=== PATIENT | female | born 1990 | race Caucasian/White ===

== ENCOUNTER 2019-04-02 14:45 | Emergency (ER) | payer MEDICAID, SELFPAY ==
[2019-04-02 14:59] VITALS: BP 153/99; PULSE 71; RESP 16; TEMP 36.4; O2SAT 99
--- NOTE | 2019-04-02 15:44 | W.ED.GENAD ---
Discharge Plan Disposition Patient Disposition: HOME Discharge Details Chief Complaint: DentalOral Clinical Impression: Dental infection Primary Care Provider: None,None ED Provider: Zenon Zamora Home Meds and New Rx's Prescriptions: Continued buprenorphine-naloxone [Suboxone] 8-2 mg Film 14 film sublingual DAILY RF: 0 Discharge Instructions Instructions: Penicillin V (By mouth), Dental Abscess (ED) Additional Instructions: Please take antibiotic as prescribed. Be sure to take the full course. Please take ibuprofen over the counter. Take 600mg by mouth every 6 hours as needed for pain. Please take acetaminophen (tylenol) - 650mg every 6 hours by mouth as needed for pain. Please contact your dentist to arrange follow-up. Return to the ER for any worsening or new concerning symptoms. Discharge Data Discharge Date/Time-TO BE ENTERED AT DEPARTURE: 04/02/19 16:00 Medical Decision Making 28-year-old female smoker here with right upper incisor dental pain that started about 2 weeks ago and has persisted. Patient notes chronic fracture of the tooth. She is no associated fevers. She does have some associated facial swelling. No appreciable abscess on visualization or palpation of her gumline. Plan to treat with lidocaine periapical dental block and penicillin. Patient to follow-up with dental. HPI General Mode of arrival: ambulatory. Date/Time Provider Initiated Documentation: 04/02/19 15:31. Limitations to Documentation: no limitations. Information obtained by: patient. HPI Narrative: 28-year-old female smoker here with right upper incisor dental pain that started about 2 weeks ago and has persisted. Patient notes chronic fracture of the tooth. She is no associated fevers. Pain is described as an ache. Pain is now severe. Worse on palpation of the tooth. Related Data Home Medications Medication Instructions Recorded Confirmed buprenorphine-naloxone [Suboxone] 14 film SUBLINGUAL DAILY 04/02/19 04/09/19 Allergies Allergy/AdvReac Type Severity Reaction Status Date / Time No Known Allergies Allergy Unverified 04/09/19 09:38 General Stated Complaint: DentalOral NEHAL: 4 Review of Systems Constitutional Constitutional: Denies fever(s) ENT Ears, Nose, Mouth, and Throat: Reports as per HPI [facility] Medical History Anxiety Depression Genital herpes Primary outbreak while . Had PCD. Molar D+C 12/02/15 for complete molar . Pt advised serial HcGs for a year and reliable contraception. Presence of subdermal contraceptive device inserted 8/17/16. Tobacco use Surgical History (Updated 03/07/18 @ 14:35 by [employer] [place]) section 01/2015 PCD @ term for primary HSV outbreak. FBarbara Jackman. ep Dilation and curettage (06/30/15) 06/30/15 Incomplete SAB 9w EGA. aoc 12/02/15 D+C complete molar . aoc Family History Mother Mental disorder severe bipolar dz Brother Mental disorder 2014 suicide 22yo. GSW Social History Smoking/Tobacco Use Status: Current every day Tobacco Type: cigarettes Alcohol Intake: never Drug use: Current Sobriety Substance use type: marijuana Do you feel safe in your relationship?: Yes Exam Const General: cooperative and no acute distress HENMT Head: normocephalic and atraumatic Face and sinus: no crepitus, no fluctuance, no sinus tenderness and other (Mild right facial swelling over mastoid with no induration) Mouth: moist mucous membranes Teeth and gingiva: poor dentition and other (Right upper incisor tender along the gumline with no fluctuance) Throat: posterior oropharynx normal Eyes EOM: EOM intact bilaterally Neck Neck: trachea midline and supple Neuro General: alert, awake and tone normal Course Vital Signs Vital signs: Vital Signs Temperature 36.4 C L 04/02/19 14:59 Pulse 71 04/02/19 14:59 Respiratory Rate 16 04/02/19 14:59 Blood Pressure 153/99 H 04/02/19 14:59 Pulse Oximetry 99 04/02/19 14:59 Temperature 36.4 C L 04/02/19 14:59 Temperature Source Skin 04/02/19 14:59 Pulse 71 04/02/19 14:59 Respiratory Rate 16 04/02/19 14:59 Respiratory Effort Non-Labored 04/02/19 14:59 Blood Pressure 153/99 H 04/02/19 14:59 Blood Pressure Position Sitting 04/02/19 14:59 Pulse Oximetry 99 04/02/19 14:59 Oxygen Delivery Method Room Air 04/02/19 14:59 Oxygen Flow Rate 0 04/02/19 14:59 Pain Level 9 04/02/19 15:05
[2019-04-02] MEDS: Penicillin V POTASSIUM 500 MG TAB, 4 TABS/BTL PO (15:48)
[2019-04-02] MEDS: Penicillin V POTASSIUM 500 MG TAB PO (15:48)
[2019-04-02] MEDS: Lidocaine 1% Multi-Dose 50 ML VIAL IJ (15:51)
== END 2019-04-02 16:00 | disposition home or self-care (01) ==
LOC: ER 16:16
PROVIDERS: Emergency Provider Student in an Organized Health Care Education/Training Program
DX: R68.84 Jaw pain (principal); K04.7 Periapical abscess without sinus; R22.0 Localized swelling, mass and lump, head
CPT/HCPCS: 99283

== ENCOUNTER 2019-04-09 09:33 | Emergency (ER) | payer MEDICAID, SELFPAY ==
[2019-04-09 09:35] VITALS: BP 117/74; PULSE 97; RESP 18; TEMP 36.8; O2SAT 96
--- NOTE | 2019-04-09 09:42 | ED.GENADUL_ITS ---
Discharge Plan Disposition Patient Disposition: HOME Condition: Stable Discharge Details Chief Complaint: DentalOral Clinical Impression: Pain, dental Primary Care Provider: None,None ED Provider: Miguel Angel Meza Home Meds and New Rx's Prescriptions: New penicillin V potassium 500 mg tablet 500 mg PO QID 7 Days Qty: 28 RF: 0 Continued buprenorphine-naloxone [Suboxone] 8-2 mg Film 14 film sublingual DAILY RF: 0 Discharge Instructions Instructions: Toothache (ED) Additional Instructions: It is important to follow up with a dentist if you have difficulty breathing or inability to swallow liquids return to the emergency department Medical Decision Making 28 yo female with dental caries who finished penicillin this morning and was improving but still has right posterior molar pain. Has no findings to suggest ludwigs and has no abscess on exam. HAs nuermous dental caries. Stressed importance of f/u with dentist to have teeth pulled and will d/c home. Return precautions given Differential Diagnosis Differential Diagnosis: caries, pulpitis HPI General Mode of arrival: ambulatory . Date/Time Provider Initiated Documentation: 04/09/19 09:36 . Limitations to Documentation: no limitations . Information obtained by: patient . History of Present Illness 28 year old F presents to the emergency department with the chief complaint of right upper tooth pain, described as moderate, Quality is described as aching, Patient reports no radiation. No relieving factors improve symptom(s), No exacerbating factors reported . Patient did receive the following treatments prior to arrival, none Related Data Home Medications Medication Instructions Recorded Confirmed buprenorphine-naloxone [Suboxone] 14 film SUBLINGUAL DAILY 04/02/19 04/09/19 penicillin V potassium 500 mg PO QID 7 Days #28 tab 04/09/19 Previous Rx's Medication Instructions Recorded penicillin V potassium 500 mg PO QID 7 Days #28 tab 04/09/19 Allergies Allergy/AdvReac Type Severity Reaction Status Date / Time No Known Allergies Allergy Unverified 04/09/19 09:38 General Stated Complaint: DentalOral NEHAL: 5 Review of Systems All systems reviewed & are unremarkable except as noted in HPI and below Constitutional Constitutional: Denies chills, Denies fever(s) and Denies weakness Cardiovascular Cardiovascular: Denies chest pain and Denies dyspnea Respiratory Respiratory: Denies cough and Denies dyspnea Gastrointestinal Gastrointestinal: Denies abdominal pain, Denies nausea and Denies vomiting Musculoskeletal Musculoskeletal: Denies joint swelling Neurologic Neurologic: Denies weakness PFSH Medical History Anxiety Depression Genital herpes Primary outbreak while . Had PCD. Molar D+C 12/02/15 for complete molar . Pt advised serial HcGs for a year and reliable contraception. Presence of subdermal contraceptive device inserted 01/06/16. Tobacco use Surgical History (Updated 03/07/18 @ 14:35 by [place]) section 01/2015 PCD @ term for primary HSV outbreak. Rupa Jackman. ep Dilation and curettage (06/30/15) 06/30/15 Incomplete SAB 9w EGA. aoc 12/02/15 D+C complete molar . aoc Family History Mother Mental disorder severe bipolar dz Brother Mental disorder 2014 suicide 22yo. GSW Social History Smoking/Tobacco Use Status: Current every day Tobacco Type: cigarettes Alcohol Intake: never Drug use: Current Sobriety Substance use type: marijuana Do you feel safe in your relationship?: Yes Exam Const General: no acute distress Orientation: alert HENMT Head: normal to inspection Ears: external ears normal General nose exam: external nose normal Mouth: moist mucous membranes Eyes General: appearance normal, both eyes and all related structures Neck Neck: normal visual inspection Resp Effort & Inspection: normal respiratory effort and able to speak in complete sen tences Cardio Rate: regular rate Skin General skin exam: no rashes or lesions noted Neuro General: alert and oriented x3 Extrem General: normal to inspection Psych Mental Status: mental status grossly normal Course Vital Signs Vital signs: Vital Signs Temperature 36.8 C 04/09/19 09:35 Pulse 97 H 04/09/19 09:35 Respiratory Rate 18 04/09/19 09:35 Blood Pressure 117/74 04/09/19 09:35 Pulse Oximetry 96 04/09/19 09:35 Temperature 36.8 C 04/09/19 09:35 Temperature Source Skin 04/09/19 09:35 Pulse 97 H 04/09/19 09:35 Respiratory Rate 18 04/09/19 09:35 Respiratory Effort Non-Labored 04/09/19 09:38 Blood Pressure 117/74 04/09/19 09:35 Blood Pressure Position Sitting 04/09/19 09:35 Pulse Oximetry 96 04/09/19 09:35 Oxygen Delivery Method Room Air 04/09/19 09:35 Oxygen Flow Rate 0 04/09/19 09:35 Pain Level 7 04/09/19 09:35
== END 2019-04-09 09:49 | disposition home or self-care (01) ==
LOC: ER 09:48
PROVIDERS: Emergency Provider Emergency Medicine
DX: K08.89 Other specified disorders of teeth and supporting structures (principal)
CPT/HCPCS: 99283

== ENCOUNTER 2019-06-04 20:49 | Emergency (ER) | payer MEDICAID, SELFPAY ==
[2019-06-04 20:53] VITALS: BP 117/60; PULSE 71; RESP 16; TEMP 36.6; O2SAT 96
--- NOTE | 2019-06-04 21:14 | W.ED.GENAD ---
Discharge Plan Disposition Patient Disposition: HOME Condition: Good Discharge Details Chief Complaint: CORRECTION OFFICER Clinical Impression: Abnormal uterine bleeding Primary Care Provider: None,None ED Provider: Morena Gee Home Meds and New Rx's Prescriptions: Continued methadone 10 mg Tablet 70 mg PO DAILY RF: 0 buprenorphine-naloxone [Suboxone] 8-2 mg Film 14 film sublingual DAILY RF: 0 Discharge Instructions Instructions: Dysfunctional Uterine Bleeding (ED) Additional Instructions: At this time, you do not have any active bleeding, strings from IUD visualized. Please call [facility] tomorrow to schedule follow up. Return if you develop fevers/chills, pain, heavy bleeding or other new/worsening symptoms. Referrals: Becca Mohan MD [ [facility] STAFF PHYSICIAN] - Medical Decision Making Patient is a 28 year old female, accompanied by significant other with c/c of vaginal bleeding. She states that she has an IUD in place, states that it is due to come out. States that over recent months she has been having intermittent spotting. Denies pain with this. Comes in today after noting bleeding after being sexually active with significant other. Denies vaginal pain, dysparunea, abdominal pain, fevers/chills, lesions, pruritis. No evidence of large blood loss. She reports that slowed down at this point. Try to quantify the amount of blood, unclear. She reports that she cut a part of the sock, inserted this into her vagina. Remove this upon arrival here and has not noted further bleeding. On exam, patient is resting comfortably. Vital signs are within normal limits. Abdominal exam is benign. Scant amount of blood is noted in the vaginal canal. The IUD strings are visible in the cervix. No active bleeding. No evidence of trauma, cuts or breaks in the skin. I discussed with the patient that at this point, I see no active source of bleeding. We did discuss that bleeding can occur even with IUD placed. She [facility] and I advised that she contact them tomorrow for prompt follow-up appointment. She was given strict return precautions. All of her questions and concerns were addressed she is in agreement with this plan. HPI General Mode of arrival: ambulatory. Date/Time Provider Initiated Documentation: 06/04/19 20:54. Limitations to Documentation: no limitations. Information obtained by: patient, family (signficant other) and RN notes reviewed. History of Present Illness 28 year old F presents to the emergency department with the chief complaint of vaginal bleeding, described as moderate, with intensity rated at 1 (denies any pain associated with this). Patient started experiencing this minute(s) and it has been constant (improving). No relieving factors improve symptom(s), Other factors that worsen symptoms (started after sexual activity) . Patient notes no other symptoms.. 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 Review of Systems Constitutional Constitutional: Reports as per HPI, Denies chills, Denies fatigue, Denies fever(s) and Denies headache(s) ENT Ears, Nose, Mouth, and Throat: Denies headache(s) Cardiovascular Cardiovascular: Reports as per HPI, Denies chest pain and Denies dyspnea Respiratory Respiratory: Reports as per HPI, Denies cough and Denies dyspnea Gastrointestinal Gastrointestinal: Reports as per HPI Genitourinary Genitourinary: Reports as per HPI, Reports abnormal vaginal bleeding, Denies hematuria, Denies genital pruritis, Denies genital lesions, Denies menorrhagia, Denies dyspareunia, Denies dysmenorrhea, Denies dysuria, Denies pelvic pain, Denies sexual dysfunction, Denies vaginal dryness, Denies vaginal odor and Denies vaginal pruritus Musculoskeletal Musculoskeletal: Reports as per HPI and Denies back pain Integumentary/Breasts Skin/Breast: Reports as per HPI and Denies rash Neurologic Neurologic: Reports as per HPI and Denies headache(s) Endocrine Endocrine: Denies fatigue [facility] Medical History Anxiety Depression Genital herpes Primary outbreak while . Had PCD. Molar D+C 12/02/15 for complete molar . Pt advised serial HcGs for a year and reliable contraception. Presence of subdermal contraceptive device inserted 01/06/16. Tobacco use Surgical History section 01/2015 PCD @ term for primary HSV outbreak. Rupa Jackman. ep Dilation and curettage (06/30/15) 06/30/15 Incomplete SAB 9w EGA. [facility] 12/02/15 D+C complete molar . [facility] Family History Mother Mental disorder severe bipolar dz Brother Mental disorder 2014 suicide 22yo. GSW Social History Smoking/Tobacco Use Status: Current every day Tobacco Type: cigarettes Alcohol Intake: never Drug use: Current Sobriety Substance use type: heroin Details: inject Do you feel safe at home: Yes Do you feel safe in your relationship?: Yes Exam Const General: cooperative, healthy appearing, comfortable, no acute distress and well developed Nutritional Appearance: average body habitus and well nourished Orientation: alert and awake HENMT Head: normal to inspection Mouth: moist mucous membranes Resp Effort & Inspection: normal respiratory effort, able to speak in complete sentences and no respiratory distress Cardio Rate: regular rate Rhythm: regular rhythm GI Inspection: normal to inspection Palpation: soft, no hepatosplenomegaly, not firm, no guarding, not rigid and nontender Auscultation: normal bowel sounds External Female Exam: external appearance normal, normal appearance of the urethra, no erythema, no tenderness externally, no external swelling and no lesions Speculum Exam - Vagina: normal appearance of the vagina (scant amount of dark blood in vagina), not erythematous, no foreign bodies, no lacerations, no lesions, vaginal bleeding, No tissue present in vagina, no masses, no swelling and nontender Speculum Exam - Cervix: normal appearance of the cervix (strings for IUD present), closed cervix and nontender Bimanual Exam- Vagina & Uterus: normal bimanual exam, normal vaginal palpation, uterine size normal, uterine consistency normal, uterine mobility normal and No cervical tenderness Bimanual Exam- Adnexa, other: normal adnexae and no adnexal masses OB/External & Speculum: no foreign bodies, no tissue noted in vagina and vaginal bleeding Back/Spine/Pelvis Back: no CVA tenderness Skin General skin exam: no rashes or lesions noted Trauma: no lacerations or abrasions Neuro General: alert and awake Cognition: normal cognition Speech: speech normal Gait: normal gait Psych Appearance: grossly normal and well kempt Mental Status: mental status grossly normal Speech and Movement: speech and movement normal Course Vital Signs Vital signs: Vital Signs Temperature 36.6 C 06/04/19 20:53 Pulse 71 06/04/19 20:53 Respiratory Rate 16 06/04/19 20:53 Blood Pressure 117/60 06/04/19 20:53 Pulse Oximetry 96 06/04/19 20:53 Temperature 36.6 C 06/04/19 20:53 Temperature Source Skin 06/04/19 20:53 Pulse 71 06/04/19 20:53 Respiratory Rate 16 06/04/19 20:53 Respiratory Effort 06/04/19 20:57 Blood Pressure 117/60 06/04/19 20:53 Blood Pressure Position Sitting 06/04/19 20:53 Pulse Oximetry 96 06/04/19 20:53 Oxygen Delivery Method Room Air 06/04/19 20:53 Oxygen Flow Rate 0 06/04/19 20:53 Pain Level 0 06/04/19 20:53 Lab/Test Results Lab/Test Results: POC- Test(urine) Negative
--- NOTE | 2019-06-04 21:35 | NUR.NOTE ---
PA in to perform pelvic exam. pt brayan well. no active bleeding noted.
== END 2019-06-04 21:40 | disposition home or self-care (01) ==
PROVIDERS: Emergency Provider Physician Assistant
DX: N93.8 Other specified abnormal uterine and vaginal bleeding (principal)
CPT/HCPCS: 81025; 99284; 99283

== ENCOUNTER 2019-06-20 11:17 | Outpatient (CLI) | payer MEDICAID, SELFPAY ==
[2019-06-21 09:59] LABS: Hepatitis B Surface Ag Negative (Negative)
[2019-06-21 10:10] LABS: HIV-1/2 Ag & Ab Screen Negative (Negative)
[2019-06-25 09:21] LABS: Hepatitis C Ab w Rflx HCV PCR Reactive (Negative)
[2019-06-25 09:23] LABS: HCV RNA Detection Quantitative 2628 IU/mL (Undetected)
== END 2019-06-20 11:37 ==
PROVIDERS: Visit Provider Obstetrics & Gynecology
DX: Z11.3 Encounter for screening for infections with a predominantly sexual mode of transmission (principal); Z11.4 Encounter for screening for human immunodeficiency virus [HIV]; Z11.59 Encounter for screening for other viral diseases
CPT/HCPCS: 36415; 86803; 87340; 87389; 87522

== ENCOUNTER 2019-06-20 14:25 | Outpatient (REF) | payer MEDICAID, SELFPAY ==
--- NOTE | 2019-06-20 11:15 | PAPFT_PTH ---
PATIENT: Natalie Jacobo LOC: [facility] U#:[id number] AGE/SX: 28/F ROOM: RE06/20/[address]: Yimi Ying MD : [id number] BED: DIS: 06/20/2019 SPEC #: [id number] RECD: 06/20/19 18:04 STATUS: MIGUEL RERenata #: [id number] OSCAR: 06/20/19 11:[address]: Yimi Ying DEPT: [facility] Cytology RECD BY: Maggie Montes ENTERED: 06/20/19 18:07 SP TYPE: PAPFT OTHR DR: None Tissues: 1 - CX/ENDOCX FOR PAP SMEARS Procedures: PAP THIN PREP/[facility] Screening Comments: [id number] (CHLAMYDIA/GC)
[2019-06-21 13:18] LABS: Chlamydia Result Negative (Negative); GC Result Negative (Negative)
== END 2019-06-20 14:45 ==
LOC: LBN 14:25
PROVIDERS: Visit Provider Obstetrics & Gynecology
DX: Z12.4 Encounter for screening for malignant neoplasm of cervix (principal); Z11.3 Encounter for screening for infections with a predominantly sexual mode of transmission
CPT/HCPCS: 87491; 87591; 88142

== ENCOUNTER 2019-10-11 09:32 | Emergency (ER) | payer MEDICAID, SELFPAY ==
[2019-10-11 09:43] VITALS: BP 111/65; PULSE 78; RESP 16; TEMP 37; O2SAT 99
--- NOTE | 2019-10-11 09:55 | W.ED.GENAD ---
Discharge Plan Disposition Patient Disposition: HOME Condition: Stable Discharge Details Chief Complaint: GenMedical Clinical Impression: UTI (urinary tract infection), Bacterial vaginosis, Rash, skin Primary Care Provider: None,None ED Provider: Rin Stewart Home Meds and New Rx's Prescriptions: New cephalexin [Keflex] 500 mg capsule 500 mg PO QID Qty: 28 RF: 0 metronidazole [Flagyl] 500 mg tablet 500 mg PO BID Qty: 14 RF: 0 mupirocin 2 % ointment 1 applic TP TID Qty: 15 RF: 0 No Action norgestimate-ethinyl estradiol [Sprintec (28)] 0.25-35 mg-mcg tablet 1 tab PO DAILY Qty: 84 RF: 4 methadone 10 mg Tablet 90 mg PO DAILY RF: 0 Discharge Instructions Instructions: Bacterial Vaginosis (ED), Urinary Tract Infection in Women (ED), Acute Rash (ED) Additional Instructions: Drink plenty of fluids. Use antibiotics as prescribed. Use Flagyl as prescribed. Do not mix with alcohol. Use antibiotic cream topically 3 times a day on rash. Please follow-up with women's wellness as discussed. Please follow-up the assistant basketball coach Return for any worsening, concerns or alarming symptoms sooner if needed Referrals: [facility] [Provider Group] Medical Decision Making Is a 28-year-old patient presenting to the emergency room for multiple complaints please see HPI for details. Patient specifically concerned with rash on bilateral upper extremities, breast bilaterally and left shoulder secondary to scratching. Patient now has signs of secondary superinfection due to skin daryn. Some pustular findings are present. Patient has no obvious abscess. Patient does have clear findings of recent IV drug use in the right AC without focal abscess or swelling present. Patient reports these lesions are chronic although now appearing more red. Patient denies obvious itching. I do not suspect scabies given distribution of patient's rash only located areas in which she scratches. She has clear skin on her back and lower extremities. Suspect patient has mild superinfection we will plan to treat with Keflex. Topical Bactroban. Patient is also complaining of vaginal discharge. Patient reports vaginal discharge intermittently. Patient does also complain of mild dysuria. Will check urinalysis as well as pelvic exam. Patient is also concerned regarding history of a molar and she was required to have serial hCGs testing which he has not followed up with. Patient did report a single episode of vaginal spotting yesterday and is concerned if she is . Will check serum hCG. Patient's urinalysis consistent with acute urinary tract infection. Patient has positive findings of nitrates, moderate leukocyte esterase, white blood cells present and many bacteria present on microscopic. Patient's pelvic exam reveals white vaginal discharge consistent with bacterial vaginosis will send vaginal path and await results. GC chlamydia swabs pending. Patient did speak with assistant basketball coach regarding her use. Will follow up with methadone clinic and her counselor as well. hCG serum negative. Patient's vaginal path results positive for Gardnerella. Patient's preference is oral medications. Will provide Flagyl twice daily x7 days. Will recommend follow-up with women's wellness. The patient was stable and requested discharge. Prior to discharge, my usual and customary return precautions were reviewed with the patient - this included follow-up instructions and reasons to return to the Emergency Department if conditions worsens, does not improve as expected, or other new concerns arise. HPI General Date/Time Provider Initiated Documentation: 10/11/19 09:42. HPI Narrative: This is a 28-year-old patient presenting to emergency room today for multiple complaints. Patient is first concerned about rash to bilateral forearms. Patient reports she is an opiate abuser. She is chronically on methadone. She does admit to recent IV drug use. She does report chronic picking of her skin for several years. Patient is concerned as she has scattered wounds to bilateral forearms, face and chest resulting from picking. Patient is concerned that these small wounds could be infected. Patient denies any itching. Patient denies any difficulty sleeping due to her these lesions. Patient does report mild redness around the area which is somewhat different from her baseline. Patient denies any fevers, chills, sweats. Patient denies any headaches or dizziness. Denies any chest pain, difficulty breathing or shortness of breath. Patient does report a mild dry cough which is her baseline. She attributes to smoking. Patient denies any abdominal pain. No abdominal distention. Patient does report some vaginal spotting of blood yesterday since resolved. Patient does report a mild white vaginal discharge. Denies any obvious itching vaginally or in the perineal area. Patient does report occasional dysuria but reports she struggles with staying hydrated and reports when hydrated she does not experience this burning when urinating. Patient is sexually active. Patient is a current methadone patient. Patient admits to IV drug use this week. Patient does report a history of molar pregnancies. Patient reports she was supposed to be followed with serial hCGs and she has not been compliant with this follow-up. Patient is requesting a serum hCG. History of D&C due to molar in the past. Related Data Home Medications Medication Instructions Recorded Confirmed methadone 90 mg PO DAILY 06/04/19 10/11/19 norgestimate 0.25 mg-ethinyl 1 tab PO DAILY #84 tab 06/20/19 06/20/19 estradiol 35 mcg tablet cephalexin [Keflex] 500 mg PO QID #28 cap 10/11/19 metronidazole [Flagyl] 500 mg PO BID #14 tab 10/11/19 mupirocin 1 applic TP TID #15 gm 10/11/19 Previous Rx's Medication Instructions Recorded norgestimate 0.25 mg-ethinyl 1 tab PO DAILY #84 tab 06/20/19 estradiol 35 mcg tablet cephalexin [Keflex] 500 mg PO QID #28 cap 10/11/19 metronidazole [Flagyl] 500 mg PO BID #14 tab 10/11/19 mupirocin 1 applic TP TID #15 gm 10/11/19 Allergies Allergy/AdvReac Type Severity Reaction Status Date / Time No Known Allergies Allergy Unverified 10/11/19 09:48 General Stated Complaint: GenMedical NEHAL: 3 Review of Systems All systems reviewed & are unremarkable except as noted in HPI and below PFSH Medical History Anxiety Depression Genital herpes Primary outbreak while . Had PCD. Molar D+C 12/02/15 for complete molar . Pt advised serial HcGs for a year and reliable contraception. Presence of subdermal contraceptive device inserted 01/06/16. Tobacco use Family History Mother Mental disorder severe bipolar dz Brother Mental disorder 2014 suicide 22yo. W Social History Smoking/Tobacco Use Status: Current every day Tobacco Type: cigarettes Quit status: not considering quitting Alcohol Intake: never Drug use: Current Sobriety Substance use type: heroin Counseling provided: treatment program Details: inject Do you feel safe at home: Yes Do you feel safe in your relationship?: Yes Exam Narrative Exam Narrative: CONST: Anxious appearing patient, in no acute distress. Mildly dehydrated. Alert and oriented. HENMT: Scattered thickened lesions on face. EYES: General normal appearance. Alignment normal. Eyelids normal. Conjunctiva normal. Sclera normal. PERRL. NECK: Normal visual inspection. FROM. No lymphadenopathy. Trachea midline. No Midline tenderness. Few scattered lesions on neck CHEST: Normal insepection of the chest. RESP: Normal respiratory effort. Speaking full sentences. No cough. No wheezing. No retractions. Clear to auscaltation. Breath sound equal and present bilaterally. CARDIO: No JVD. Normal PMI. Regular Rate. Regular Rhythm. Normal peripheral pulses. GI: Normal inspection of abdomen. No distension. Soft. Nontender. Bowel sounds present in all 4 quadrants. No rebound. No gaurding. : Patient with no obvious external lesions. Patient has white vaginal discharge present, mildly malodorous. Cervix is closed, no cervical motion tenderness. No obvious adnexal tenderness or mass. MUSCULOSKELETAL: Normal Gait. FROM of all extremities. Distal neurovascularly intact. Sensation intact distally. SKIN: Normal. Dry. Patient with bilateral forearm rash consistent with picking and possible superimposed secondary bacterial infection there are a few areas of pustular lesions noted at the wrist. Patient has a recent IV drug use today in the right AC. Patient has picking moore along the anterior chest and left shoulder. NEURO: Alert and awake. Speech clear. PSYCH: Normal affect. Cooperative. Course Vital Signs Vital signs: Vital Signs Temperature 37.0 C 10/11/19 09:43 Pulse 78 10/11/19 09:43 Respiratory Rate 16 10/11/19 09:43 Blood Pressure 111/65 10/11/19 09:43 Pulse Oximetry 99 10/11/19 09:43 Temperature 37.0 C 10/11/19 09:43 Temperature Source Skin 10/11/19 09:43 Pulse 78 10/11/19 09:43 Respiratory Rate 16 10/11/19 09:43 Respiratory Effort 10/11/19 09:49 Blood Pressure 111/65 10/11/19 09:43 Pulse Oximetry 99 10/11/19 09:43 Oxygen Delivery Method Room Air 10/11/19 09:43 Oxygen Flow Rate 0 10/11/19 09:43
[2019-10-11 10:37] LABS: Abs Immature Grans 0.03 k/cumm (0.0-0.09); Absolute Basophil Count 0.01 k/cumm (0.0-0.2); Absolute Eosinophil Count 0.04 k/cumm (0.0-0.7); Absolute Lymphocyte Count 1.19 k/cumm (1.2-3.4); Basophils % 0.1; Eosinophils % 0.3; HCT 40.8 % (36.0-46.0); HGB 13.7 g/dL (12.0-15.5); Immature Grans % 0.2 %; Lymphocytes % 8.7; Mean Corp. HGB Concentration 33.6 g/dL (32.0-36.0); Mean Corpuscular Hemoglobin 31.1 pg (27.0-33.0); Mean Corpuscular Volume 92.5 fL (80-95); Mean Platelet Volume 9.9 fL (8.0-11.0); Monocytes % 4.2; Neutrophils % 86.5; Platelet Count 256 x1000/uL (130-400); RBC 4.41 m/cumm (4.00-5.20); RBC Distribution Width 13.6 % (11.7-14.6); White Blood Cell Count 13.73 k/cumm (4.4-10.8)
[2019-10-11 10:44] LABS: Absolute Monocyte Count 0.58 k/cumm (0.11-0.7); Absolute Neutrophil Count 11.88 k/cumm (1.2-6.7)
[2019-10-11 10:51] LABS: Bilirubin Negative (Negative); Blood Moderate (Negative); Clarity Cloudy (Clear); Glucose Negative (Negative); Ketones Negative (Negative); Leukocyte Esterase Moderate (Negative); Nitrite Positive (Negative); Urobilinogen 0.2 EU/dL (Up TO 0.2)
[2019-10-11 11:01] LABS: HCG Qual (Serum) Negative
[2019-10-11 11:09] LABS: Bacteria Many HPF (Negative); Crystals Rare Calcium Oxalate HPF (Negative); Epithelial Cells Many HPF (Negative); Mucus Negative (Negative)
[2019-10-11 11:10] LABS: C & S Indicated? C&S Done As Ordered
[2019-10-14 15:46] LABS: Chlamydia Result Negative (Negative); GC Result Negative (Negative)
== END 2019-10-11 12:25 | disposition home or self-care (01) ==
PROVIDERS: Emergency Provider Physician Assistant
DX: N76.0 Acute vaginitis (principal); B96.89 Other specified bacterial agents as the cause of diseases classified elsewhere; N39.0 Urinary tract infection, site not specified; R21 Rash and other nonspecific skin eruption; F11.20 Opioid dependence, uncomplicated; Z59.0 Homelessness
CPT/HCPCS: 36415; 87077; 87491; 87591; 99284; 81003; 81015; 84703; 85025; 87086; 87186; 87480; 87510; 87660

== ENCOUNTER 2020-07-28 03:48 | Outpatient (CLI) | payer MEDICAID, SELFPAY ==
--- NOTE | 2020-07-28 14:45 | RT.EKG_ITS ---
APPROVED REPORT Exam: Resting ECG Patient Location: O HR:62 bpm ECG Measurements Heart Rate 62 AXIS [place] 154 P 38 QRSd 89 QRS -6 QT 443 T 37 QTc 450 Conclusion Sinus rhythm...normal P axis, V-rate 60- 99
== END 2020-07-28 03:49 | disposition home or self-care (01) ==
LOC: RT 03:48
PROVIDERS: Visit Provider Family Medicine
DX: Z79.899 Other long term (current) drug therapy (principal); Z13.6 Encounter for screening for cardiovascular disorders
CPT/HCPCS: 93005; 93010

== ENCOUNTER 2020-11-30 03:16 | Outpatient (CLI) | payer MEDICAID, SELFPAY ==
[2020-11-30 10:20] LABS: Abs Immature Grans 0.01 10^3/uL (0.0-0.06); Absolute Basophil Count 0.02 10^3/uL (0.0-0.2); Absolute Eosinophil Count 0.25 10^3/uL (0.0-0.7); Absolute Lymphocyte Count 1.86 10^3/uL (1.2-3.4); Absolute Monocyte Count 0.59 10^3/uL (0.1-0.8); Basophils % 0.3; Eosinophils % 4.4; HCT 37.9 % (36.0-46.0); HGB 12.1 g/dL (11.2-15.7); Immature Grans % 0.2; Lymphocytes % 32.5; MCH 30.3 pg (27.0-33.0); MCHC 31.9 % (32.0-36.0); MPV 9.2 fL (8.0-11.0); Monocytes % 10.3; Neutrophils % 52.3; Nucleated RBC 0 %; Platelet Count 181 10^3/uL (130-400); RBC 3.99 10^6/uL (3.93-5.22); RDW-SD 49.1 fL; WBC 5.73 10^3/uL (4.4-10.8)
[2020-11-30 12:41] LABS: ALT 61 U/L (14-59); AST 33 U/L (15-37); Albumin 3.1 g/dL (3.4-5.0); Alkaline Phosphatase 85 U/L (46-116); Anion Gap 7.4 mmol/L (3-11); BUN 9 mg/dL (7-18); Bilirubin, Total 0.6 mg/dL (0.2-1.0); CO2 30.6 mmol/L (21.0-32.0); CREATININE 1.1 mg/dL (0.55-1.02); Calcium 8.7 mg/dL (8.5-10.1); Calculated LDL 86 mg/dL (<100); Chloride 106 mmol/L (98-107); Cholesterol 151 mg/dL (<200); Estimated GFR 59.58 (mL/min/1.73m2); Glucose 110 mg/dL (74-106); HDL Cholesterol 47 mg/dL (40-60); Potassium 5.1 mmol/L (3.5-5.1); Sodium 144 mmol/L (136-145); TSH 0.76 uIU/mL (0.36-3.74); Total Protein 6.3 g/dL (6.4-8.2); Triglyceride 93 mg/dL (<150)
[2020-11-30 12:43] LABS: HCG Quant, Pregnancy < 1 mIU/mL (1-3)
[2020-11-30 13:03] LABS: FREE T4 1.16 ng/dL (0.76-1.46)
[2020-11-30 19:42] LABS: FSH 4.5 mIU/mL (See Note)
[2020-11-30 19:48] LABS: LH 5.7 mIU/mL (See Note)
[2020-12-01 10:58] LABS: Syphilis Serology (RPR) Negative (Negative)
[2020-12-01 11:32] LABS: HIV-1/2 Ag & Ab Screen Negative (Negative)
[2020-12-01 11:47] LABS: Hepatitis C Ab w Rflx HCV PCR Reactive (Negative)
[2020-12-02 14:54] LABS: HCV RNA Qualitative Undetected (Undetected)
== END 2020-11-30 03:17 | disposition home or self-care (01) ==
LOC: LBO 03:16
PROVIDERS: PCP Nurse Practitioner Family; Visit Provider Nurse Practitioner Family
DX: F19.90 Other psychoactive substance use, unspecified, uncomplicated (principal); Z13.220 Encounter for screening for lipoid disorders; N91.2 Amenorrhea, unspecified; Z11.59 Encounter for screening for other viral diseases; Z11.4 Encounter for screening for human immunodeficiency virus [HIV]
CPT/HCPCS: 36415; 80053; 80061; 86803; 87389; 87522; 83001; 83002; 84439; 84443; 84702; 85025; 86592

== ENCOUNTER 2021-02-15 08:59 | Emergency (ER) | payer MEDICAID, SELFPAY ==
[2021-02-15 09:08] VITALS: BP 139/85; PULSE 106; RESP 18; TEMP 36.6; O2SAT 100
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
--- NOTE | 2021-02-15 10:46 | NUR.NOTE ---
Pt rang [facility]ally and requested how long it would be that she needed to wait for results at 1043-advised her that it would be 45-60 min. I left the room and she then got dressed and left the building.Nursing Note:
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
== END 2021-02-15 10:46 | disposition left against medical advice (07) ==
PROVIDERS: Emergency Provider Physician Assistant; PCP Nurse Practitioner Family
DX: S52.511A Displaced fracture of right radial styloid process, initial encounter for closed fracture (principal); S09.8XXA Other specified injuries of head, initial encounter; S01.81XA Laceration without foreign body of other part of head, initial encounter; V57.5XXA Driver of pick-up truck or van injured in collision with fixed or stationary object in traffic accident, initial encounter; Z53.29 Procedure and treatment not carried out because of patient's decision for other reasons
CPT/HCPCS: 81025; 99284; 70450; 72125; 73110

== ENCOUNTER 2021-02-16 10:30 | Emergency (ER) | payer MEDICAID, SELFPAY ==
[2021-02-16 10:32] VITALS: BP 130/85; PULSE 99; RESP 16; TEMP 36.6; O2SAT 100
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
== END 2021-02-16 10:54 | disposition home or self-care (01) ==
PROVIDERS: Emergency Provider Emergency Medicine; PCP Nurse Practitioner Family
DX: S52.511A Displaced fracture of right radial styloid process, initial encounter for closed fracture (principal); V87 Traffic accident of specified type but victim's mode of transport unknown
CPT/HCPCS: 25600

== ENCOUNTER 2021-10-14 19:49 | Emergency (ER) | payer MEDICAID, SELFPAY ==
[2021-10-14 19:54] VITALS: BP 132/87; PULSE 102; RESP 18; TEMP 36.9; O2SAT 98
[2021-10-14] MEDS: Ibuprofen 600 MG TAB PO (20:55)
[2021-10-14] MEDS: Acetaminophen 325 MG TAB 650 MG PO (20:55)
[2021-10-14] MEDS: Benzocaine 20% Gel 30 GM JAR MM (20:56)
--- NOTE | 2021-10-14 20:59 | W.ED.GENAD ---
Discharge Plan Disposition Patient Disposition: HOME Condition: Stable Discharge Details Clinical Impression: Dental abscess Primary Care Provider: Sandy Milner ED Provider: Zenon Zamora Home Meds and New Rx's Prescriptions: New penicillin V potassium 500 mg tablet 500 mg PO QID Qty: 38 0RF Continued methadone 10 mg/5 mL Solution 60 mg PO DAILY Discharge Instructions Instructions: Penicillin V (By mouth), Dental Abscess (ED) Additional Instructions: Please take antibiotic as prescribed. Performed salt water rinses twice a day. Please follow-up with a dentist. Call tomorrow. Referrals: Sandy Milner, NASIR [Primary Care Provider] - Medical Decision Making 30-year-old female smoker, here with dental abscess tooth #4. Patient was anesthetized with mucosal benzocaine. She was given Tylenol and ibuprofen. I offered lidocaine injection and patient refused. Lateral fluctuant abscess ruptured on its own and had active purulent discharge -patient was not agreeable to intervention lateral gumline. Patient was agreeable to incision of medial swelling. She provided verbal consent. 11 blade was used to make small incision into area of swelling medially. Usual customary discharge instructions reviewed with the patient. She was given initial dose of penicillin 500 mg here in the ED and also provided a second dose for the morning. I sent prescription to her pharmacy for continued course. Patient understands the importance of timely follow-up with dentist. I did provide dental list to the patient to arrange follow-up. She was encouraged to return here immediately for any worsening or new concerning symptoms. HPI General Mode of arrival: ambulatory. Date/Time Provider Initiated Documentation: 10/14/21 20:34. Limitations to Documentation: no limitations. Information obtained by: patient. HPI Narrative: 30-year-old female smoker here with dental pain. Patient notes pain started yesterday and has worsened. Pain now severe. No modifiers. She has associated swelling. She notes feels like there is an abscess with feeling a pop. No associated fever. This tooth has not been infected in the past. Patient has not taken any ibuprofen or Tylenol this evening. Related Data Home Medications Medication Instructions Recorded Confirmed methadone 10 mg/5 mL oral solution 60 mg PO DAILY 10/14/21 10/14/21 penicillin V potassium 500 mg 500 mg PO QID #38 tabs 10/14/21 tablet Previous Rx's Medication Instructions Recorded penicillin V potassium 500 mg 500 mg PO QID #38 tabs 10/14/21 tablet Allergies Allergy/AdvReac Type Severity Reaction Status Date / Time house dust Allergy Unknown Unverified 10/14/21 19:58 dust mite Allergy Unknown Uncoded 10/14/21 19:58 General Stated Complaint: DentalOral NEHAL: 4 Review of Systems Constitutional Constitutional: Reports as per HPI ENT Ears, Nose, Mouth, and Throat: Reports as per HPI PFSH All Active Problems Dental abscess (Acute) No-show for appointment (Acute) Closed fracture of right distal radius (Acute) Fracture of wrist (Acute) Head injury (Acute) Substance use disorder (Chronic) IV heroin use. On methadone through [facility] Major depressive disorder (Chronic) Generalized anxiety disorder (Acute) Cigarette smoker (Acute) Surgical History S/P section (02/10/15) S/P dilation and curettage (12/02/15) For molar Family History Mother Alcohol abuse Bipolar disorder Asthma Father , at 37 from car accident No problems noted. Brother , at 22 from suicide Alcohol abuse Daughter No problems noted. Maternal Grandfather Alcohol abuse Cancer Unknown type Maternal Grandmother Heart disease Myocardial infarction Paternal Grandfather No problems noted. Paternal Grandmother No problems noted. Social History Smoking/Tobacco Use Status: Current every day Tobacco Type: cigarettes Quit status: not considering quitting Second Hand Exposure: Yes Smoking risk assessment performed?: Yes Alcohol Intake: never Drug use: Daily Substance use type: marijuana Details: inject Household members: none Pets and animals: Yes Pets and animals: dog(s) Sexually active: No Do you think of yourself as: straight/heterosexual Current gender identity: female What is your relationship status?: never How often do you talk on the phone with friends or family?: three or more times per week How often do you get together with friends or relatives?: never How often do you attend scientology or evangelical services?: 1-3 times per year Panel score (0-1 are the most socially isolated patients): 1 What type of physical activity do you participate in: walking Duration: > 90 minutes/day Frequency: daily Lulú/Gnosticism: No preference Special lulú needs: No Seatbelt use: sometimes Helmet use: No 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 Do you feel safe at home: Yes Do you feel safe in your relationship?: Yes History History 3 Para 1 Hx # Term Pregnancies Multiple births Hx # Pregnancies Ectopic pregnancies AB induced Hx Number of Living Children 1 AB spontaneous 2 Exam Const General: uncomfortable Nutritional Appearance: well nourished Orientation: alert and awake HENMT Face and sinus: no fluctuance and other (Mild swelling right maxilla) Teeth and gingiva: poor dentition and other (Tooth #5 with fluctuant abscess adjacent to tooth laterally & med swelling) Throat: posterior oropharynx normal Course Vital Signs Vital signs: Vital Signs Temperature 36.9 C 10/14/21 19:54 Pulse 102 H 10/14/21 19:54 Respiratory Rate 18 10/14/21 19:54 Blood Pressure 132/87 10/14/21 19:54 Pulse Oximetry 98 10/14/21 19:54 Temperature 36.9 C 10/14/21 19:54 Pulse 102 H 10/14/21 19:54 Respiratory Rate 18 10/14/21 19:54 Respiratory Effort 10/14/21 20:00 Blood Pressure 132/87 10/14/21 19:54 Blood Pressure Position Sitting 10/14/21 19:54 Pulse Oximetry 98 10/14/21 19:54 Oxygen Delivery Method Room Air 10/14/21 19:54 Oxygen Flow Rate 0 10/14/21 19:54 Pain Level 8 10/14/21 19:54 Procedures Abscess I/D Site: Other (tooth) Side (if applicable): Right Local Anesthetic: Other Anesthetic (Benzocaine topical) Technique: Incised with #11 Blade Packing used?: None Complications: Other (none)
[2021-10-14] MEDS: Lidocaine 2% Multi-Dose 50 ML VIAL (21:00)
[2021-10-14] MEDS: Penicillin V POTASSIUM 500 MG TAB PO ×2 (21:23)
== END 2021-10-14 21:30 | disposition home or self-care (01) ==
PROVIDERS: Emergency Provider Student in an Organized Health Care Education/Training Program; PCP Nurse Practitioner Family
DX: K04.7 Periapical abscess without sinus (principal)
CPT/HCPCS: 10060; J3490

== ENCOUNTER 2022-01-27 12:33 | Emergency (ER) | payer MEDICAID, SELFPAY ==
[2022-01-27 12:42] VITALS: BP 147/96; PULSE 122; RESP 20; TEMP 36.7; O2SAT 99
--- NOTE | 2022-01-27 13:14 | W.ED.GENAD ---
Discharge Plan Disposition Patient Disposition: HOME Condition: Stable Discharge Details Clinical Impression: Dental infection Primary Care Provider: Sandy Milner ED Provider: Jett Hebert Home Meds and New Rx's Prescriptions: New clindamycin HCl 300 mg capsule 300 mg PO TID Qty: 30 0RF Continued methadone 10 mg/5 mL Solution 60 mg PO DAILY Discharge Instructions Instructions: Dental Abscess (ED) Additional Instructions: Clindamycin as directed. [id number] Tylenol and/or Motrin as directed for discomfort. Please watch for new or worsening symptoms and return to the ER for any concerns. Lastly, using the dental list provided please contact the local dentist to be seen at a next available appointment. Medical Decision Making 31-year-old female with poor dentition at baseline reports 7-day history of increased mouth pain, foul taste in her mouth, believes an abscess popped. Patient states that she was recently placed on penicillin but it made her itchy so she never took it. She denies fever, difficulty speaking or swallowing. Patient requesting a prescription for antibiotics. I will also provide her with local dental list. Patient appears well, nontoxic, no evidence of trismus. She manages secretions without difficulty. Patient does state that she missed her methadone dose for the last 3 days, was given a half dose this morning, and continues to feel somewhat ill secondary to withdrawal. She is requesting that the prescription be faxed as she does not want to wait for any of her discharge instructions. Patient was verbally discharged Standard discharge and return precautions were provided. Patient understands, is agreeable to this plan, and has no additional questions or concerns upon discharge. This documentation was generated using [employer] system, please disregard any oddities of phrase or misspellings. Medical Records Medical records reviewed: Yes I reviewed the patient's medical records. HPI General Mode of arrival: ambulatory. Date/Time Provider Initiated Documentation: 01/27/22 12:49. Limitations to Documentation: no limitations. Information obtained by: patient. History of Present Illness 31 year old F presents to the emergency department with the chief complaint of dental infection, described as moderate, with intensity rated at 4. Quality is described as aching, and is localized to the mouth. Patient reports no radiation. Patient started experiencing this day(s) (6) and it has been constant. No relieving factors improve symptom(s), No exacerbating factors reported . Patient notes no other symptoms.. Patient did receive the following treatments prior to arrival, none Related Data Home Medications Medication Instructions Recorded Confirmed methadone 10 mg/5 mL oral solution 60 mg PO DAILY 10/14/21 01/27/22 clindamycin HCl 300 mg capsule 300 mg PO TID #30 caps 01/27/22 Previous Rx's Medication Instructions Recorded clindamycin HCl 300 mg capsule 300 mg PO TID #30 caps 01/27/22 Allergies Allergy/AdvReac Type Severity Reaction Status Date / Time house dust Allergy Unknown Unverified 01/27/22 12:46 dust mite Allergy Unknown Uncoded 01/27/22 12:46 General Stated Complaint: DentalOral NEHAL: 4 Review of Systems Constitutional Constitutional: Denies fever(s) ENT Ears, Nose, Mouth, and Throat: Denies sore throat Gastrointestinal Gastrointestinal: Denies nausea and Denies vomiting PFSH All Active Problems Dental infection (Acute) No-show for appointment (Acute) Closed fracture of right distal radius (Acute) Fracture of wrist (Acute) Head injury (Acute) Substance use disorder (Chronic) 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 Brother , at 22 from suicide Alcohol abuse Daughter No problems noted. Maternal Grandfather Alcohol abuse Cancer Unknown type Maternal Grandmother Heart disease Myocardial infarction Paternal Grandfather No problems noted. Paternal Grandmother No problems noted. Social History Smoking/Tobacco Use Status: Current every day Tobacco Type: cigarettes Quit status: not considering quitting Second Hand Exposure: Yes Smoking risk assessment performed?: Yes Alcohol Intake: never Drug use: Daily Substance use type: marijuana Details: inject Household members: none Pets and animals: Yes Pets and animals: dog(s) Sexually active: No Do you think of yourself as: straight/heterosexual Current gender identity: female What is your relationship status?: never How often do you talk on the phone with friends or family?: three or more times per week How often do you get together with friends or relatives?: never How often do you attend yazidi or scientology services?: 1-3 times per year Panel score (0-1 are the most socially isolated patients): 1 What type of physical activity do you participate in: walking Duration: > 90 minutes/day Frequency: daily Lulú/Mosque: No preference Special lulú needs: No Seatbelt use: sometimes Helmet use: No Drive intox or ride w/intox local company refrigerated truck driver: No Do you feel safe at home: Yes Do you feel safe in your relationship?: Yes History History 3 Para 1 Hx # Term Pregnancies Multiple births Hx # Pregnancies Ectopic pregnancies AB induced Hx Number of Living Children 1 AB spontaneous 2 Exam Const General: cooperative, healthy appearing, comfortable and no acute distress Orientation: alert and awake HENMT Head: normal to inspection, normocephalic and atraumatic Face and sinus: normal facial exam Mouth: lip normal, tongue normal and moist mucous membranes Teeth and gingiva: poor dentition (Throughout) Throat: posterior oropharynx normal Eyes General: appearance normal, both eyes and all related structures Conjunctivae: conjunctivae normal Neck Neck: normal visual inspection, full ROM, no lymphadenopathy, no meningeal signs, trachea midline, supple and nontender Resp Effort & Inspection: normal respiratory effort and able to speak in complete sentences Auscultation: clear to auscultation bilaterally Cardio Rate: bradycardic (102) Rhythm: regular rhythm Skin General skin exam: no rashes or lesions noted Neuro General: patient alert, patient awake, moves all extremities and no focal motor deficits Sensory Exam: no sensory deficits noted Psych Appearance: grossly normal Mental Status: mental status grossly normal Course Vital Signs Vital signs: Vital Signs Temperature 36.7 C 01/27/22 12:42 Pulse 122 H 01/27/22 12:42 Respiratory Rate 20 01/27/22 12:42 Blood Pressure 147/96 H 01/27/22 12:42 Pulse Oximetry 99 01/27/22 12:42 Temperature 36.7 C 01/27/22 12:42 Temperature Source Temporal Artery Scan 01/27/22 12:42 Pulse 122 H 01/27/22 12:42 Respiratory Rate 20 01/27/22 12:42 Blood Pressure 147/96 H 01/27/22 12:42 Blood Pressure Position Sitting 01/27/22 12:42 Pulse Oximetry 99 01/27/22 12:42 Oxygen Delivery Method Room Air 01/27/22 12:42 Oxygen Flow Rate 0 01/27/22 12:42 Pain Level 6 01/27/22 12:42
[2022-01-27 13:16] VITALS: BP 158/92; PULSE 103; RESP 18; TEMP 36.6; O2SAT 100
== END 2022-01-27 13:19 | disposition home or self-care (01) ==
PROVIDERS: Emergency Provider Physician Assistant; PCP Nurse Practitioner Family
DX: K04.7 Periapical abscess without sinus (principal); R00.1 Bradycardia, unspecified; F17.210 Nicotine dependence, cigarettes, uncomplicated
CPT/HCPCS: 99283; 99284

== ENCOUNTER 2023-02-07 03:45 | Outpatient (CLI) | payer MEDICAID, SELFPAY ==
[2023-02-07 13:10] LABS: ALT 24 U/L (14-59); AST 22 U/L (15-37); Albumin 3.5 g/dL (3.4-5.0); Alkaline Phosphatase 59 U/L (46-116); Anion Gap 7.8 mmol/L (3-11); BUN 19 mg/dL (7-18); Bilirubin, Total 0.5 mg/dL (0.2-1.0); CO2 27.2 mmol/L (21.0-32.0); CREATININE 1.3 mg/dL (0.55-1.02); Calcium 9.5 mg/dL (8.5-10.1); Chloride 102 mmol/L (98-107); Estimated GFR 56.73 (mL/min/1.73m2); Glucose 94 mg/dL (74-106); Potassium 4.2 mmol/L (3.5-5.1); Sodium 137 mmol/L (136-145); TSH (W/Ref FT4) 0.56 uIU/mL (0.36-3.74); Total Protein 7.5 g/dL (6.4-8.2)
[2023-02-09 10:32] LABS: Syphilis Serology (RPR) Negative (Negative)
[2023-02-09 11:00] LABS: HIV-1/2 Ag & Ab Screen Negative (Negative)
[2023-02-09 13:25] LABS: Hepatitis C Ab w Rflx HCV PCR Reactive (Negative)
[2023-02-10 11:06] LABS: HCV RNA Qualitative Undetected (Undetected)
== END 2023-02-07 03:46 | disposition home or self-care (01) ==
LOC: LOS 03:45
PROVIDERS: PCP Nurse Practitioner Family; Visit Provider Nurse Practitioner Family
DX: F11.21 Opioid dependence, in remission (principal); Z11.4 Encounter for screening for human immunodeficiency virus [HIV]; Z11.59 Encounter for screening for other viral diseases; Z11.3 Encounter for screening for infections with a predominantly sexual mode of transmission; F32.89 Other specified depressive episodes
CPT/HCPCS: 36415; 80053; 86803; 87389; 87522; 84443; 86592

== ENCOUNTER 2023-08-13 16:38 | Emergency (ER) | payer MEDICAID, SELFPAY ==
[2023-08-13 16:43] VITALS: BP 177/138; PULSE 76; RESP 18; TEMP 37.4; O2SAT 96
--- NOTE | 2023-08-13 17:00 | DI.CT_ITS ---
Exam(s) CT HEAD WO EXAM: CT HEAD WO CLINICAL HISTORY: ams. TECHNIQUE: Imaging Protocol: Axial computed tomography images with coronal and sagittal reformatted images were created and reviewed COMPARISON: CT CT HEAD CERVICAL SPINE WO from 02/15/2021 FINDINGS: Ventricles and Extra axial spaces: Normal in size and morphology for the patient's age. Hemorrhage: None. Cerebral parenchyma: No evidence of acute infarct or mass. Midline shift: None. Brainstem/Cerebellum: Cerebellar tonsils extend slightly below the foramen magnum. No evidence of cr owding or tonsillar pegging. Stable appearance. Calvarium: Normal. Visualized Paranasal sinuses:Clear. Mastoids: Clear. Soft Tissues: Unremarkable. ORBITS: Unremarkable. PITUITARY: Not enlarged. IMPRESSION: No acute intracranial process. RADIATION DOSE DELIVERED: Total DLP DATA REPOSITORY: All CT scans at this facility are submitted to the National Radiology Data Registry (NRDR) Dose Index Registry (DIR) with the [employer] ([employer]). RADIATION OPTIMIZATION: All CT scans at this facility use at least one of these dose optimization te chniques: automated exposure control; mA and/or kV adjustment per patient size (includes targeted exa ms where dose is matched to clinical indication); or iterative reconstruction.
--- NOTE | 2023-08-13 17:00 | RT.EKG_ITS ---
APPROVED REPORT Exam: Resting ECG Reason for Exam: ams Patient Location: E HR:84 bpm ECG Measurements Heart Rate 84 AXIS FL 157 P 69 QRSd 90 QRS -49 QT 412 T 31 QTc 488 Conclusion Sinus rhythm...normal P axis, V-rate 60- 99 Left anterior fascicular block...axis(240,-40), init forces inf Narrow complex normal sinus rhythm at a rate of 84. Left axis deviation no signs of LVH with voltage criteria in aVL. Significant artifact interfering with interpretation. FL and QTc within normal li mits. No acute injury pattern. Compared to prior left axis deviation is new.
[2023-08-13] MEDS: LORazepam 1 MG TAB PO (17:22)
[2023-08-13 17:50] LABS: Abs Immature Grans 0.04 10^3/uL (0.0-0.06); Absolute Eosinophil Count 0.02 10^3/uL (0.0-0.7); Absolute Monocyte Count 0.88 10^3/uL (0.1-0.8); Absolute Neutrophil Count 8.02 10^3/uL (1.2-6.7); Basophils % 0.3; Eosinophils % 0.2; HCT 46.2 % (36.0-46.0); HGB 15.2 g/dL (11.2-15.7); Immature Grans % 0.3; Lymphocytes % 24.6; MCH 30.2 pg (27.0-33.0); MCHC 32.9 % (32.0-36.0); MCV 92 fL (80-95); MPV 10.2 fL (8.0-11.0); Monocytes % 7.4; Neutrophils % 67.2; Platelet Count 256 10^3/uL (130-400); RBC 5.04 10^6/uL (3.93-5.22); RDW 13.8 % (11.7-14.6); RDW-SD 46.3 fL; WBC 11.93 10^3/uL (4.4-10.8)
[2023-08-13 17:51] LABS: Absolute Basophil Count 0.04 10^3/uL (0.0-0.2); Absolute Lymphocyte Count 2.93 10^3/uL (1.2-3.4)
[2023-08-13 18:16] LABS: ALT 18 U/L (14-59); AST 18 U/L (15-37); Albumin 4.4 g/dL (3.4-5.0); Alkaline Phosphatase 70 U/L (46-116); Anion Gap 13.1 mmol/L (3-11); BUN 19 mg/dL (7-18); Bilirubin, Total 0.9 mg/dL (0.2-1.0); CO2 25.9 mmol/L (21.0-32.0); CREATININE 1.2 mg/dL (0.55-1.02); Calcium 9.8 mg/dL (8.5-10.1); Chloride 100 mmol/L (98-107); Estimated GFR 62.45 (mL/min/1.73m2); Glucose 72 mg/dL (74-106); Potassium 3.8 mmol/L (3.5-5.1); Sodium 139 mmol/L (136-145)
[2023-08-13 18:19] LABS: ETHANOL BLOOD < 3.0 mg/dL (<10)
--- NOTE | 2023-08-13 18:28 | ED.GENADUL_ITS ---
Discharge Plan Disposition Patient Disposition: Home Condition: Stable Discharge Details Clinical Impression: Acute paranoia, Mood disorder, Polysubstance abuse Primary Care Provider: Sandy Milner ED Provider: Maggie Monterroso Home Meds and New Rx's Prescriptions: Continued methadone 10 mg tablet 100 mg PO DAILY Patient Comments: managed by Bjorn naloxone [Narcan] 4 mg/actuation spray,non-aerosol 1 spray intranasal Q2-3M PRN (Reason: opioid overdose) Qty: 2 4RF Rx Instructions: spray 1 dose into ONE nostril; alternate nostrils w each dose until help arrives sertraline 50 mg tablet 75 mg PO DAILY Qty: 135 3RF Hold Instructions: pt stopped on own Rx Instructions: Take 1.5 tablets daily Discharge Instructions Additional Instructions: Please continue on your medications as prescribed including your sertraline Follow-up with [facility] human services as instructed Should you have return thoughts of wanting to harm yourself or any new concerns arise, please return immediately for reassessment Referrals: Sandy Milner, NASIR [Primary Care Provider] - HPI General Date/Time Provider Initiated Documentation: 08/13/23 16:51 . HPI Narrative: This 32-year-old female presents with report of confusion, paranoia, auditory and visual hallucinations for the past week. Mother states that patient had a similar episode approximately 10 years ago but has not had recurrence until now. Patient states that she does not take her medications daily. She endorses he aring voices that tell her that she does not deserve to be alive or eat or drink. She reportedly went to [place] with a group of people unknown to her mom when she came back this was her presentation. Patient does not endorse hallucinogen use but does state she had a relapse and was using opiates IV. She states that she feels like she does not deserve to live. Mother states she has been with her daughter consistently for the past 48 hours denies any intentional attempts to harm self. She has not been eating or drinking much per mom. Patient states she would like a test. She denies any homicidal ideation. Mother states that Missy has not communicated with her consistently since the trip to [place]. Patient unfortunately is a poor historian at time of assessment so majority of history is obtained from mother and partially obtained from patient Related Data Home Medications Medication Instructions Recorded Confirmed naloxone 4 mg/actuation nasal 1 spray intranasal Q2-3M PRN 05/05/22 08/13/23 spray (Narcan) opioid overdose #2 ea methadone 10 mg tablet 100 mg PO DAILY 11/02/22 08/13/23 sertraline 50 mg tablet 75 mg (1.5 x 50 mg) PO DAILY #135 02/17/23 08/13/23 tabs Previous Rx's Medication Instructions Recorded naloxone 4 mg/actuation nasal 1 spray intranasal Q2-3M PRN 05/05/22 spray (Narcan) opioid overdose #2 ea sertraline 50 mg tablet 75 mg (1.5 x 50 mg) PO DAILY #135 02/17/23 tabs Allergies Allergy/AdvReac Type Severity Reaction Status Date / Time house dust Allergy Unknown Other (See Unverified 08/13/23 16:47 Comment) dust mite Allergy Unknown Other (See Uncoded 08/13/23 16:47 Comment) General Stated Complaint: PsychEval NEHAL: 2 Course Vital Signs Vital signs: Vital Signs Temperature 37.4 C 08/13/23 16:43 Pulse 76 08/13/23 16:43 Respiratory Rate 18 08/13/23 16:43 Blood Pressure 177/138 H 08/13/23 16:43 Pulse Oximetry 96 08/13/23 16:43 Temperature 37.4 C 08/13/23 16:43 Temperature Source Temporal Artery Scan 08/13/23 16:43 Pulse 76 08/13/23 16:43 Respiratory Rate 18 08/13/23 16:43 Respiratory Effort Normal, Non-Labored 08/13/23 16:47 Blood Pressure 177/138 H 08/13/23 16:43 Blood Pressure Position Sitting 08/13/23 16:43 Pulse Oximetry 96 08/13/23 16:43 Oxygen Delivery Method Room Air 08/13/23 16:43 Oxygen Flow Rate 0 08/13/23 16:43 Pain Level 0 08/13/23 16:43 Lab/Test Results Lab/Test Results: Laboratory Tests Range/Units 08/13/23 08/13/23 17:44 17:44 WBC (4.4-10.8) 10^3/uL 11.93 H RBC (3.93-5.22) 10^6/uL 5.04 Hgb (11.2-15.7) g/dL 15.2 Hct (36.0-46.0) % 46.2 H MCV (80-95) fL 92 MCH (27.0-33.0) pg 30.2 MCHC (32.0-36.0) % 32.9 RDW (11.7-14.6) % 13.8 Plt Count (130-400) 10^3/uL 256 MPV (8.0-11.0) fL 10.2 Immature Gran % 0.3 Neutrophils % 67.2 Lymphocytes % 24.6 Monocytes % 7.4 Eosinophils % 0.2 Basophils % 0.3 Nucleated RBC % (0.0-0.3) % 0.0 Absolute Neutrophils (1.2-6.7) 10^3/uL 8.02 H Absolute Lymphocytes (1.2-3.4) 10^3/uL 2.93 Absolute Monocytes (0.1-0.8) 10^3/uL 0.88 H Absolute Eosinophils (0.0-0.7) 10^3/uL 0.02 Absolute Basophils (0.0-0.2) 10^3/uL 0.04 Sodium (136-145) mmol/L 139 Potassium (3.5-5.1) mmol/L 3.8 Chloride (98-107) mmol/L 100 Carbon Dioxide (21.0-32.0) mmol/L 25.9 Anion Gap (3-11) mmol/L 13.1 H BUN (7-18) mg/dL 19 H Creatinine (0.55-1.02) mg/dL 1.2 H Est GFR (CKD-EPI 2020) (mL/min/1.73m2) 62.45 Glucose (74-106) mg/dL 72 L Calcium (8.5-10.1) mg/dL 9.8 Total Bilirubin (0.2-1.0) mg/dL 0.9 AST (15-37) U/L 18 ALT (14-59) U/L 18 Alkaline Phosphatase (46-116) U/L 70 Total Protein (6.4-8.2) g/dL 9.0 H Albumin (3.4-5.0) g/dL 4.4 TSH (0.36-3.74) uIU/mL 0.60 Cancelled Ethyl Alcohol (<10) mg/dL < 3.0 POC- Test(urine) Negative Medical Decision Making This is a 32-year-old female that is presenting with her mom with confusion, paranoia, hallucinating History of similar presentation approximately 10 years ago per mom she was hospitalized at this time, this is after hallucinogen use Patient does not endorse using hallucinogens but is poor historian at time of assessment does admit to using IV heroin last week Patient is alert and oriented x 2, but is having active hallucinations in the room and continues to repeat that she should be Her labs are consistent with her prior assessments, she has history of elevated creatinine at 1.3, glucose 72, will give food and fluids Pending CT head, once patient is medically cleared will likely obtain psychiatric assessment for appropriate medication dosing, did receive 1 mg of Ativan in the emergency department On reassessment after CT head was reviewed which does not show evidence of acute abnormality and reassuring labs, positive for THC and cocaine Patient becomes quite lucid, alert, oriented declines any suicidal ideation and would like to be discharged home, she is calm and cooperative, her mom also states that patient has returned to her baseline I suspect secondary to polysubstance abuse At this time she is alert, oriented, of decisional capacity, ambulatory with steady gait and otherwise has stable labs [facility] human services has evaluated this patient and feels that she is appropriate for safety plan she actually has close outpatient follow-up reestablish Patient will continue on her prescribed medications and is comfortable with this discharge plan at this time I have evaluated this patient on numerous occasions throughout this encounter and feel at time of reassessment that she is stable for discharge home Quality:SDOH Health Related Social Needs: No Data to Display PFSH All Active Problems Polysubstance abuse (Acute) Mood disorder (Acute) Acute paranoia (Acute) Opioid use disorder, severe, in early remission, dependence (Chronic) Major depressive disorder, recurrent (Chronic) Generalized anxiety disorder (Chronic) Genital herpes (Chronic) Cigarette smoker (Chronic) Surgical History S/P dilation and curettage (12/02/15) For molar S/P section (02/10/15) Family History Mother Alcohol abuse Bipolar disorder Asthma Father , at 37 from car accident No problems noted. Brother , at 22 from suicide Alcohol abuse Daughter No problems noted. Maternal Grandfather Alcohol abuse Cancer Unknown type Maternal Grandmother Heart disease Myocardial infarction Paternal Grandfather No problems noted. Paternal Grandmother No problems noted. Social History Smoking/Tobacco Use Status: Current every day Tobacco Type: cigarettes Quit status: not considering quitting Second Hand Exposure: Yes Smoking risk assessment performed?: Yes Alcohol Intake: former Drug use: Occasionally Substance use type: marijuana, crack/cocaine, heroin and IV drugs Details: inject Caregiver/Support person: No Household members: none Housing: homeless Communication Needs: None Do you need help understanding health information?: Rarely Pets and animals: Yes Pets and animals: dog(s) Sexually active: Yes Do you think of yourself as: straight/heterosexual Current gender identity: female What is your relationship status?: never How often do you talk on the phone with friends or family?: three or more times per week How often do you get together with friends or relatives?: three or more times per week How often do you attend congregational or nondenominational services?: decline to answer Do you belong to any clubs or organized social groups?: decline to answer Panel score (0-1 are the most socially isolated patients): 1 What type of physical activity do you participate in: walking Duration: > 90 minutes/day Frequency: daily Lulú/Confucianism: No preference Special lulú needs: No Seatbelt use: sometimes Helmet use: No Drive intox or ride w/intox rivet driver: No Do you feel safe at home: Yes Do you feel safe in your relationship?: Yes History History 3 Para 1 Hx # Term Pregnancies Multiple births Hx # Pregnancies Ectopic pregnancies AB induced Hx Number of Living Children 1 AB spontaneous 2
[2023-08-13 18:30] VITALS: BP 137/108; PULSE 93; RESP 20; O2SAT 99
[2023-08-13 18:36] LABS: *AMPHETAMINES SCREEN URINE Negative (Negative); *BARBITURATES SCREEN URINE Negative (Negative); *BENZODIAZEPINES SCREEN URINE Negative (Negative); Bilirubin Negative (Negative); Blood Trace-intact (Negative); Cannabinoids THC Positive (Negative); Clarity Clear (Clear); Cocaine Screen,Urine Positive (Negative); Glucose Negative (Negative); Ketones 40 mg/dL (Negative); Leukocyte Esterase Trace (Negative); METHADONE URINE SCREEN Positive (Negative); Nitrite Negative (Negative); OPIATES URINE SCREEN Negative (Negative); Specific Gravity >= 1.030 (1.005-1.025); Urobilinogen 0.2 mg/dL (Up to 0.2); pH 6.5 (5-8)
[2023-08-13 18:37] LABS: Tricyclic Antidepressants Negative (Negative)
[2023-08-13 18:39] LABS: Acetaminophen < 2 ug/mL (10-30)
[2023-08-13 18:51] LABS: Bacteria Moderate HPF (Negative); C & S Indicated? No/Sq. Contamination; Casts Negative LPF (Negative); Crystals Negative HPF (Negative); Epithelial Cells Moderate HPF (Negative); Mucus Trace (Negative); RBC 0-2 HPF (0-2); WBC 20-50 HPF (0-5)
--- NOTE | 2023-08-13 19:10 | DI.VRAD_ITS ---
PROCEDURE INFORMATION: Exam: CT Head Without Contrast Exam date and time: 08/13/2023 6:18 PM Age: 32 years old Clinical indication: Altered mental status/memory loss; Patient HX: AMS TECHNIQUE: Imaging protocol: Computed tomography of the head without contrast. COMPARISON: CT HEAD CERVICAL SPINE WO 02/15/2021 10:16 AM FINDINGS: Brain: The IACs are grossly normal. No extra-axial fluid collections. No evidence of acute intracranial hemorrhage. Cerebral/cerebellar randhawa-white differentiation is well maintained. No CT evidence of large territory acute or subacute intracranial ischemia/infarct. No intracranial mass lesions. Low-lying right cerebellar tonsillar consistent with tonsillar ectopia without gross tonsillar pegging, extending up to 2.5 mm below the foramen magnum. This does not meet imaging criteria for Chiari 1. No midline shift or herniation. Cerebral ventricles: Ventricles normal. Pituitary gland and sella: The sella is grossly normal. Paranasal sinuses: Minimal mucosal thickening in the inferior maxillary sinuses suggesting mild chronic sinusitis. The other paranasal sinuses are clear. No fluid levels. Left middle turbinate ted bullosa measuring 9 mm transverse. Paradoxical turn of the right middle turbinate incidentally noted. Mastoid air cells: Visualized mastoid air cells are clear. Orbital cavities: Visualized orbital contents demonstrate no acute abnormality. Bones/joints: The calvarium and visualized facial bones are intact. Soft tissues: The scalp and visualized soft tissues demonstrate no acute abnormality. Vasculature: No gross vascular abnormalities. No asymmetric vascular hyperdensities suggestive of thrombosis are identified. IMPRESSION: 1. No acute intracranial process. No intracranial hemorrhage or mass effect. 2. Mild cerebellar tonsillar ectopia which does not meet imaging criteria for Chiari 1. Dictated and Authenticated by: Jaime Fernandez MD. Ordering:DARBY Serrano MD
[2023-08-13 22:11] VITALS: BP 128/87; PULSE 88; RESP 22; TEMP 36.6; O2SAT 97
--- NOTE | 2023-08-14 16:26 | PDOC.MHCN_ITS ---
Date of service: 08/13/23 Time of Service: 07:30 PHQ-9 Over the last 2 weeks, how often have you been bothered by any of the following problems? 1. Little interest or pleasure in doing things: several days 2. Feeling down, depressed, or hopeless: several days 3. Trouble falling or staying asleep, or sleeping too much: not at all 4. Feeling tired or having little energy: not at all 5. Poor appetite or overeating: nearly every day 6. Feeling bad about yourself - or that you are a failure or have let yourself and your family down: more than half the days 7. Trouble concentrating on things, such as reading the newspaper or watching television: not at all 8. Moving or speaking so slowly that other people could have noticed? - Or the opposite - being so fidgety or restless that you have been moving around a lot more than usual: not at all 9. Thoughts that you would be better off or of hurting yourself in some way: more than half the days Total score: 9 Source: Developed by Drs. Dimas Zazueta, Macy Treviño, Arturo Thakkar and colleagues, with an educational jaylyn from [employer]. Mental Health Emergency Note Release NK release signed:: Yes Reason for Visit Mother brought her in to Er due to SI and drug withdrawal In the last 2 weeks has the pt presented for ES prior to today?: No Client Information Client is: Adult Outpatient Well Housed: Yes Non Suicidal Self Injury Current: No History: yes, needs to be in therapy for addiction and depression Safety Risk/Harm to Self or Others Current Ideation to Harm Self or Others: No Risk: Does risk to harm exist?: yes. Risk: Moderate Risk Duty to warn indicated: No Asssessment/Mental Status Appearance: Other Attitude: Cooperative Behavior: Poor impulse control and Repetitive movements Speech: Soft and Slow Affect: Constricted Mood: Sad, Depressed and Anxious Thought process: Poverty of content Hallucinations: No Delusions: No Attention: Wandering Perception: Not impaired Orientation: Fully orientated Memory: Intact Insight: Poor Judgement: Poor Neurovegetative Symptoms Sleep: Increase Appetitie: Decrease Interests: Decrease Energy: Decrease Libido: Not applicable Substance Use: Other Drug Issues: Dependence Do you use nicotine?: Yes Have you used substances in the last 7 days?: yes, often Additional Issues: Assaultive/Threatening Behavior: No Medical Concerns: No Client engaged in active self harm w/weapon: No Threatening to run away: No Child reported abuse/neglect: No Voluntarily presenting for services: Yes Domestic violence is a concern: No Extreme Psychosis or extreme behavior is present: No Impression Client came to the ER due to having suicidal thoughts and [facility] Resources Reosurces reviewed and given:: 988 and [facility] Plan/Disposition Recommended Disposition: [facility] Services [facility] Services: Therapy, Therapy, Med management and Community resources. Plan: Client will follow Safety Plan and will check in daily. She will come to the [facility] office for therapy and med management tomorrow. Person reported agreement to plan: Yes Reports/communication Outcome discussed with: ED/Personnel
== END 2023-08-13 22:12 | disposition home or self-care (01) ==
PROVIDERS: Emergency Provider Physician Assistant; PCP Nurse Practitioner Family
DX: F22 Delusional disorders (principal); F39 Unspecified mood [affective] disorder; R44.0 Auditory hallucinations; R44.1 Visual hallucinations; F19.10 Other psychoactive substance abuse, uncomplicated; F17.210 Nicotine dependence, cigarettes, uncomplicated
CPT/HCPCS: 00123; 80053; 80307; 81025; 82962; 93005; 96127; 99284; 70450; 80320; 80329; 81003; 81015; 84443; 85025; 93010

== ENCOUNTER 2023-08-16 13:31 | Emergency (ER) | payer MEDICAID, SELFPAY ==
[2023-08-16 13:44] VITALS: BP 132/97; PULSE 100; RESP 15; O2SAT 98
--- NOTE | 2023-08-16 13:56 | ED.GENADUL_ITS ---
Discharge Plan Discharge Details Chief Complaint: PsychEval Primary Care Provider: Sandy Milner ED Provider: Flaca Knight Home Meds and New Rx's Prescriptions: No Action methadone 10 mg tablet 100 mg PO DAILY Patient Comments: managed by Bjorn naloxone [Narcan] 4 mg/actuation spray,non-aerosol 1 spray intranasal Q2-3M PRN (Reason: opioid overdose) Qty: 2 4RF Rx Instructions: spray 1 dose into ONE nostril; alternate nostrils w each dose until help arrives sertraline 50 mg tablet 75 mg PO DAILY Qty: 135 3RF Hold Instructions: pt stopped on own Rx Instructions: Take 1.5 tablets daily HPI General Date/Time Provider Initiated Documentation: 08/16/23 13:50 . Related Data Home Medications Medication Instructions Recorded Confirmed naloxone 4 mg/actuation nasal 1 spray intranasal Q2-3M PRN 05/05/22 08/13/23 spray (Narcan) opioid overdose #2 ea methadone 10 mg tablet 100 mg PO DAILY 11/02/22 08/13/23 sertraline 50 mg tablet 75 mg (1.5 x 50 mg) PO DAILY #135 02/17/23 08/13/23 tabs Previous Rx's Medication Instructions Recorded naloxone 4 mg/actuation nasal 1 spray intranasal Q2-3M PRN 05/05/22 spray (Narcan) opioid overdose #2 ea sertraline 50 mg tablet 75 mg (1.5 x 50 mg) PO DAILY #135 02/17/23 tabs Allergies Allergy/AdvReac Type Severity Reaction Status Date / Time house dust Allergy Unknown Other (See Unverified 08/13/23 16:47 Comment) dust mite Allergy Unknown Other (See Uncoded 08/13/23 16:47 Comment) General Stated Complaint: PsychEval NEHAL: 2 Review of Systems Narrative: History supplied by mother and manager care management [facility]. Patient refuses to answer. Unobtainable due to mental status Constitutional Constitutional: Reports as per HPI, Reports anorexia, Reports daytime sleepiness, Reports lethargy and Denies weakness ENT Ears, Nose, Mouth, and Throat: Denies dizziness Cardiovascular Cardiovascular: Denies dyspnea Respiratory Respiratory: Denies cough and Denies dyspnea Gastrointestinal Gastrointestinal: Denies abdominal pain, Denies diarrhea, Denies nausea and Denies vomiting Neurologic Neurologic: Reports behavioral changes, Denies confusion, Denies dizziness, Denies localized weakness and Denies weakness Psychiatric Psychiatric: Reports as per HPI, Reports abnormal sleep pattern, Reports anxiety, Reports behavioral changes, Denies confusion, Reports depression, Reports hopelessness, Reports irritability, Reports mood swings, Reports paranoia and Reports tactile hallucinations Exam Narrative Exam Narrative: Constitutional: Awake, appears upset, avoids eye contact imtermittently crying and grimacing, . Appears stated age. Normal body habitus. Head: Normocephalic, no trauma. Eyes: Pupils PERRL, Red reflex noted, EOM's intact. Eyelids symmetrical without lesions, discharge, or swelling. ENT: Bilateral TM's WNL, External ear normal to inspection, no mastoid TTP, swelling, or erythema, Nasal turbinates WNL, no nasal discharge. Normal dentition, Posterior pharynx WNL, no exudate. Chest: RRR, Normal S1, S2, distal pulses intact. Resp: Lungs clear to auscultation bilaterally, no wheezes, rales, or rhonchi. Abdomen: Soft, non-distended, Normoactive bowel sounds all 4 quads. Musculoskeletal: Normal gait, Moving all 4 extremities withour difficulty Skin: No suspicious rashes or lesions. Capillary refill less than 2 sec. Neurologic: Cranial nerves II-XII intact. Alert and oriented x 3. Motor: No focal motor deficits noted. Sensory: Intact bilaterally all 4 extremities. Psychiatric: See below Hematologic/Lymphatic: No ecchymosis, no lymphadenopathy. Psych Mental Status: other (Rocking, avoiding eye contact, non verbal ) Speech and Movement: catatonic and mute Mood: expansive and other (Rocking, avoiding eye contact, non verbal ) Affect: sad, anxious affect, irritable affect and blunted Attitude: guarded, avoids eye contact and refuses to answer Thought Process: tangential Thought Content: phobias Insight: poor Judgment: poor Course Vital Signs Vital signs: Vital Signs Pulse 100 H 08/16/23 13:44 Respiratory Rate 15 08/16/23 13:44 Blood Pressure 132/97 H 08/16/23 13:44 Pulse Oximetry 98 08/16/23 13:44 Pulse 100 H 08/16/23 13:44 Respiratory Rate 15 08/16/23 13:44 Blood Pressure 132/97 H 08/16/23 13:44 Blood Pressure Position Sitting 08/16/23 13:44 Pulse Oximetry 98 08/16/23 13:44 Oxygen Delivery Method Room Air 08/16/23 13:44 Oxygen Flow Rate 0 08/16/23 13:44 Medical Decision Making 1351: Spoke with Nora with [facility] who has already performed the initial evaluation prior to arrival, she wanted to give some more insight into situation. Patient has been seen multiple times was here on Monday for a evaluation and was safety planned home at that time. Patient was originally seen on Monday for visual and auditory hallucinations. Since then she has declined at home per her mom's report. Per Nora with any [facility] mom states that she is not eating or sleeping and drinking very little. She was seen today and was unable to communicate just staring blankly. Per mom she was walking around looking for sharps at the home, yesterday she was able to communicate with paper and a pen. Nora is hoping to pursue voluntary placement however is willing to do the EE if needed. Will medically clear with labs and IV fluids. 32-year-old female with a past medical history of acute paranoia, anxiety, mood disorder and polysubstance abuse Mom states patient has been drinking PO fluid without difficulty, will order PO Lorazepam 0.5mg and see if patient is compliant. Patient is non-verbal at this time, alternates between staring off into space and crying. Informed by ED staff patient being spoon fed by friend in room. Requested by [facility] human services Nora is a crisis weather clerk psych liaison to fill out EE form due to patient noncompliance with evaluation and behavioral changes. Form filled out. Patient to be handed off to oncoming provider Dr. Zamora pending placement- involuntary. Quality:SDOH Health Related Social Needs: No Data to Display PFSH All Active Problems Polysubstance abuse (Acute) Mood disorder (Acute) Acute paranoia (Acute) Opioid use disorder, severe, in early remission, dependence (Chronic) Major depressive disorder, recurrent (Chronic) Generalized anxiety disorder (Chronic) Genital herpes (Chronic) Cigarette smoker (Chronic) Surgical History S/P dilation and curettage (12/02/15) For molar S/P section (02/10/15) Family History Mother Alcohol abuse Bipolar disorder Asthma Father , at 37 from car accident No problems noted. Brother , at 22 from suicide Alcohol abuse Daughter No problems noted. Maternal Grandfather Alcohol abuse Cancer Unknown type Maternal Grandmother Heart disease Myocardial infarction Paternal Grandfather No problems noted. Paternal Grandmother No problems noted. Social History Smoking/Tobacco Use Status: Current every day Tobacco Type: cigarettes Quit status: not considering quitting Second Hand Exposure: Yes Smoking risk assessment performed?: Yes Alcohol Intake: former Drug use: Occasionally Substance use type: marijuana, crack/cocaine, heroin and IV drugs Details: inject Caregiver/Support person: No Household members: none Housing: homeless Communication Needs: None Do you need help understanding health information?: Rarely Pets and animals: Yes Pets and animals: dog(s) Sexually active: Yes Do you think of yourself as: straight/heterosexual Current gender identity: female What is your relationship status?: never How often do you talk on the phone with friends or family?: three or more times per week How often do you get together with friends or relatives?: three or more times per week How often do you attend mormon or orthodox services?: decline to answer Do you belong to any clubs or organized social groups?: decline to answer Panel score (0-1 are the most socially isolated patients): 1 What type of physical activity do you participate in: walking Duration: > 90 minutes/day Frequency: daily Lulú/Yarsanism: No preference Special lulú needs: No Seatbelt use: sometimes Helmet use: No Drive intox or ride w/intox coach tour driver: No Do you feel safe at home: Yes Do you feel safe in your relationship?: Yes History History 3 Para 1 Hx # Term Pregnancies Multiple births Hx # Pregnancies Ectopic pregnancies AB induced Hx Number of Living Children 1 AB spontaneous 2 Sign Out Sign Out Data: Sign Out Comment: Pending Mental health evaluation and placement. Here with behavioral changes, not eating, sleeping. History of mood disorder. Seen here recently for hallucinations. Given 0.5mg Lorazepam here and is taken small bites of food. Nora called earlier about patient. Last updated by Flaca Knight NP at 08/16/23 16:00
[2023-08-16] MEDS: LORazepam 0.5 MG TAB PO (14:26)
[2023-08-16 14:47] LABS: Abs Immature Grans 0.03 10^3/uL (0.0-0.06); Absolute Basophil Count 0.02 10^3/uL (0.0-0.2); Absolute Eosinophil Count 0.02 10^3/uL (0.0-0.7); Absolute Lymphocyte Count 1.84 10^3/uL (1.2-3.4); Absolute Monocyte Count 0.66 10^3/uL (0.1-0.8); Absolute Neutrophil Count 7.48 10^3/uL (1.2-6.7); Basophils % 0.2; Eosinophils % 0.2; HCT 44.4 % (36.0-46.0); HGB 14.9 g/dL (11.2-15.7); Immature Grans % 0.3; Lymphocytes % 18.3; MCH 30.3 pg (27.0-33.0); MCHC 33.6 % (32.0-36.0); MCV 90 fL (80-95); MPV 10.7 fL (8.0-11.0); Monocytes % 6.6; Neutrophils % 74.4; Platelet Count 217 10^3/uL (130-400); RBC 4.92 10^6/uL (3.93-5.22); RDW 13.6 % (11.7-14.6); RDW-SD 45.5 fL; WBC 10.05 10^3/uL (4.4-10.8)
[2023-08-16 15:21] LABS: ALT 18 U/L (14-59); AST 15 U/L (15-37); Alkaline Phosphatase 63 U/L (46-116); Anion Gap 11.1 mmol/L (3-11); BUN 18 mg/dL (7-18); Bilirubin, Total 0.6 mg/dL (0.2-1.0); CO2 25.9 mmol/L (21.0-32.0); CREATININE 1.1 mg/dL (0.55-1.02); Calcium 9.5 mg/dL (8.5-10.1); Chloride 104 mmol/L (98-107); Estimated GFR 69.32 (mL/min/1.73m2); Glucose 116 mg/dL (74-106); Potassium 3.6 mmol/L (3.5-5.1); Sodium 141 mmol/L (136-145); TSH (W/Ref FT4) 0.21 uIU/mL (0.36-3.74); Total Protein 8.2 g/dL (6.4-8.2)
[2023-08-16 15:28] LABS: Salicylate 11.3 mg/dL (<2.8)
[2023-08-16 15:35] LABS: Acetaminophen < 2 ug/mL (10-30)
[2023-08-16 15:37] LABS: ETHANOL BLOOD < 3.0 mg/dL (<10)
[2023-08-16 15:45] LABS: Bilirubin Small (Negative); Blood Large (Negative); Clarity Turbid (Clear); Glucose Negative (Negative); Ketones 40 mg/dL (Negative); Leukocyte Esterase Negative (Negative); Nitrite Positive (Negative); Specific Gravity >= 1.030 (1.005-1.025)
[2023-08-16 15:58] LABS: Bacteria Many HPF (Negative); C & S Indicated? Yes; Casts Negative LPF (Negative); Crystals Negative HPF (Negative); Epithelial Cells Rare HPF (Negative); Mucus Moderate (Negative); Other Cells Rare Renal (Negative)
[2023-08-16 15:59] LABS: FREE T4 1.32 ng/dL (0.76-1.46)
[2023-08-16 16:02] LABS: *AMPHETAMINES SCREEN URINE Negative (Negative); *BARBITURATES SCREEN URINE Negative (Negative); *BENZODIAZEPINES SCREEN URINE Negative (Negative); Cannabinoids THC Positive (Negative); Cocaine Screen,Urine Positive (Negative); METHADONE URINE SCREEN Positive (Negative); OPIATES URINE SCREEN Negative (Negative); Tricyclic Antidepressants Negative (Negative)
--- NOTE | 2023-08-16 23:43 | W.EDPROG ---
Date of service: 08/16/23 Time of Service: 23:43 Medical Decision Making -- Care was signed out by a nurse practitioner Eugene with plan for EE. Patient notably medically screened and cleared. Initial certification was performed. Awaiting second certification. -- Second certification performed. -- Urinalysis reviewed and concerning for infectious process. I attempted to discuss this with the patient and she is not able to provide any history. Apparently there was a note by mother to nursing that there was foreign body potentially tissue in the patient's vagina. Plan will be to attempt to examine external genitalia when patient would allow and potentially at next time she needs to urinate. Plan to initiate treatment for UTI with Keflex given unable to obtain history. Methadone dosing will need to be determined tomorrow. Lab Data Lab results reviewed: Yes I reviewed the patient's lab results. Labs: 08/16/23 15:37 Urine - Reflex from Ua Urine Culture - Pending Laboratory Tests Range/Units 08/16/23 08/16/23 14:35 15:37 WBC (4.4-10.8) 10^3/uL 10.05 RBC (3.93-5.22) 10^6/uL 4.92 Hgb (11.2-15.7) g/dL 14.9 Hct (36.0-46.0) % 44.4 MCV (80-95) fL 90 MCH (27.0-33.0) pg 30.3 MCHC (32.0-36.0) % 33.6 RDW (11.7-14.6) % 13.6 Plt Count (130-400) 10^3/uL 217 MPV (8.0-11.0) fL 10.7 Immature Gran % 0.3 Neutrophils % 74.4 Lymphocytes % 18.3 Monocytes % 6.6 Eosinophils % 0.2 Basophils % 0.2 Nucleated RBC % (0.0-0.3) % 0.0 Absolute Neutrophils (1.2-6.7) 10^3/uL 7.48 H Absolute Lymphocytes (1.2-3.4) 10^3/uL 1.84 Absolute Monocytes (0.1-0.8) 10^3/uL 0.66 Absolute Eosinophils (0.0-0.7) 10^3/uL 0.02 Absolute Basophils (0.0-0.2) 10^3/uL 0.02 Sodium (136-145) mmol/L 141 Potassium (3.5-5.1) mmol/L 3.6 Chloride (98-107) mmol/L 104 Carbon Dioxide (21.0-32.0) mmol/L 25.9 Anion Gap (3-11) mmol/L 11.1 H BUN (7-18) mg/dL 18 Creatinine (0.55-1.02) mg/dL 1.1 H Est GFR (CKD-EPI 2020) (mL/min/1.73m2) 69.32 Glucose (74-106) mg/dL 116 H Calcium (8.5-10.1) mg/dL 9.5 Total Bilirubin (0.2-1.0) mg/dL 0.6 AST (15-37) U/L 15 ALT (14-59) U/L 18 Alkaline Phosphatase (46-116) U/L 63 Total Protein (6.4-8.2) g/dL 8.2 Albumin (3.4-5.0) g/dL 4.0 TSH (0.36-3.74) uIU/mL 0.21 L Free T4 (0.76-1.46) ng/dL 1.32 Urine Color (Yellow) Dark Yellow Urine Clarity (Clear) Turbid Urine pH (5-8) 6.0 Ur Specific Rosanky (1.005-1.025) >= 1.030 H Urine Protein (Neg-Trace) mg/dL 30 H Urine Ketones (Negative) mg/dL 40 H Urine Blood (Negative) Large H Urine Nitrite (Negative) Positive H Urine Bilirubin (Negative) Small H Urine Urobilinogen (Up to 0.2) mg/dL 1.0 H Ur Leukocyte Esterase (Negative) Negative Urine RBC (0-2) HPF 3-5 H Urine WBC (0-5) HPF 5-10 Ur Epithelial Cells (Negative) HPF Rare Urine Crystals (Negative) HPF Negative Urine Bacteria (Negative) HPF Many Urine Casts (Negative) LPF Negative Urine Mucus (Negative) Moderate Urine Other (Negative) Rare Renal Ur Culture Indicated? Yes Urine Glucose (Negative) mg/dL Negative Salicylates (<2.8) mg/dL 11.3 Urine Opiates Screen (Negative) Negative Urine Methadone Screen (Negative) Positive A Acetaminophen (10-30) ug/mL < 2 Ur Barbiturates Screen (Negative) Negative Ur Tricyclics Screen (Negative) Negative Ur Amphetamines Screen (Negative) Negative U Benzodiazepines Scrn (Negative) Negative Urine Cocaine Screen (Negative) Positive A Ur THC Screen (Negative) Positive A Ethyl Alcohol (<10) mg/dL < 3.0 Quality:SDOH Health Related Social Needs: No Data to Display Sign Out Sign Out Data: Sign Out Comment: Pending Mental health evaluation and placement. Here with behavioral changes, not eating, sleeping. History of mood disorder. Seen here recently for hallucinations. Given 0.5mg Lorazepam here and is taken small bites of food. Nora called earlier about patient. Last updated by Flaca Knight NP at 08/16/23 16:00 Discharge Plan Discharge Details Chief Complaint: PsychEval Primary Care Provider: Sandy Milner ED Provider: Zenon Zamora Home Meds and New Rx's Prescriptions: No Action methadone 10 mg tablet 100 mg PO DAILY Patient Comments: managed by Bjorn naloxone [Narcan] 4 mg/actuation spray,non-aerosol 1 spray intranasal Q2-3M PRN (Reason: opioid overdose) Qty: 2 4RF Rx Instructions: spray 1 dose into ONE nostril; alternate nostrils w each dose until help arrives sertraline 50 mg tablet 75 mg PO DAILY Qty: 135 3RF Hold Instructions: pt stopped on own Rx Instructions: Take 1.5 tablets daily
--- NOTE | 2023-08-17 00:14 | ED.PROG_ITS ---
Date of service: 08/17/23 Time of Service: 00:15 Medical Decision Making This patient was signed out to me. Please see previous notes for H&P and initial eval. In brief, 32yo F presenting with hallucinations, has become minimally verbal. EEd and 2nd cert completed. Awaiting placement. On my initial evaluation patient sitting in bed, will not engage in verbal communication. I attempted to engage with her for approximately 15 minutes. She did make eye contact. Became more distressed over time, grimacing, began rocking back and forth on the bed. Occasional moan. She then began looking at the television and did not make further eye contact. Nursing staff reported that her mother had earlier spoken to staff and said that she helps the patient with toileting and had found some tissue paper in the vagina which she removed, and that things 'did not look right'. Given UA with signs of UTI, there is concern for some further foreign body. Patient not able to consent to pelvic exam at this time. I do think she requires at minimum an external exam and likely an internal pelvic exam, however not emergently as she is overall well and not concerning for toxic shock syndrome. If she gets up to the bathroom overnight I will see if she will permit me to accompany her for at least a brief external exam; if not would try during the day accomapnied by her mother. Overnight restless. Little to no sleep. No acute behavioral events. Signed out to oncoming physician; plan remains as above. Quality:[facility] Health Related Social Needs: No Data to Display Sign Out Sign Out Data: Sign Out Comment: Pending Mental health evaluation and placement. Here with behavioral changes, not eating, sleeping. History of mood disorder. Seen here recently for hallucinations. Given 0.5mg Lorazepam here and is taken small bites of food. Nora called earlier about patient. Last updated by Flaca Knight NP at 08/16/23 16:00 Sign Out Comment: Urinalysis reviewed and concerning for UTI. Patient not forthcoming. Will initiate treatment with Keflex twice daily. Also note from mother that there may be foreign body, potentially tissue paper, in vagina. Plan to perform exam when patient will allow or at next urination. Methadone dosing will need to be determined tomorrow morning. Second certification has been performed. Last updated by Zenon Zamora MD at 08/17/23 00:19 Sign Out Comment: Needs external possibly internal pelvic exam when pt will allow Methadone dose to be confirmed in the am Last updated by Maria Elena Delgado MD at 08/17/23 00:25 Discharge Plan Discharge Details Chief Complaint: PsychEval Primary Care Provider: Sandy Milner ED Provider: Maria Elena Delgado Home Meds and New Rx's Prescriptions: No Action methadone 10 mg tablet 100 mg PO DAILY Patient Comments: managed by Bjorn naloxone [Narcan] 4 mg/actuation spray,non-aerosol 1 spray intranasal Q2-3M PRN (Reason: opioid overdose) Qty: 2 4RF Rx Instructions: spray 1 dose into ONE nostril; alternate nostrils w each dose until help arrives sertraline 50 mg tablet 75 mg PO DAILY Qty: 135 3RF Hold Instructions: pt stopped on own Rx Instructions: Take 1.5 tablets daily
--- NOTE | 2023-08-17 07:16 | W.EDPROG ---
Date of service: 08/17/23 Time of Service: 07:16 Medical Decision Making I received signout on this 32-year-old female in the emergency department on involuntary hold??EE. She was reportedly more withdrawn and increasingly nonverbal. She is also reportedly only eating and drinking minimally. She had no MICKEY. She was however diagnosed with urinary tract infection for which she has been placed on cephalexin. There was concern for some retained toilet paper in her vagina for which she is pending an external exam that has not yet been completed. Mom is reportedly going to come to the emergency department in approximately 1 hour. Will need to confirm the patient's home methadone and sertraline doses. She is on a one-to-one monitor. She has a regular diet ordered with a safety tray. 9AM Patient began became more agitated for which I ordered 2 mg of lorazepam and her home methadone 100 mg which was confirmed by health munitions factory worker Mahogany. Patient last had her dose on August 13. 12 PM I spoke with Ioana Villa from the [facility] who agreed to graciously accept the patient in transfer. Still awaiting on mom to return to complete exam. 1:25 PM I met with the patient and her mom and completed an external exam with emergency department camera technician Robyn as a registered nurse. On external exam patient had no obvious retained foreign bodies. She had no vesicles and I was not suspicious for genital herpes. She was markedly anxious and uncomfortable with exam. Given that she was not ill-appearing nor hypotensive I was not concerned for retained tampon which she denies. As result I did not complete an internal exam. Patient's mother was in the room at the time of the exam. Also prior to exam the camera in the room was covered for patient privacy. 2:12 PM I ordered the patient some Nicorette gum per patient request. 2:55 PM I signed patient out to Dr. Meza pending transfer. I had completed transfer paperwork to send the patient to the [facility]. Quality:SDOH Health Related Social Needs: No Data to Display Sign Out Sign Out Data: Sign Out Comment: Pending Mental health evaluation and placement. Here with behavioral changes, not eating, sleeping. History of mood disorder. Seen here recently for hallucinations. Given 0.5mg Lorazepam here and is taken small bites of food. Nora called earlier about patient. Last updated by Flaca Knight NP at 08/16/23 16:00 Sign Out Comment: Urinalysis reviewed and concerning for UTI. Patient not forthcoming. Will initiate treatment with Keflex twice daily. Also note from mother that there may be foreign body, potentially tissue paper, in vagina. Plan to perform exam when patient will allow or at next urination. Methadone dosing will need to be determined tomorrow morning. Second certification has been performed. Last updated by Zenon Zamora MD at 08/17/23 00:19 Sign Out Comment: EE and 2nd cert done. Treating for UTI. Concern from mother for foreign body, potentially tissue paper, in the vagina. Needs external possibly internal pelvic exam when pt will allow. Methadone needs to be confirmed in the am Last updated by Maria Elena Delgado MD at 08/17/23 06:07 Discharge Plan Disposition Patient Disposition: [facility] Hospital/Unit Specific Psychiatric Facility: [facility] Discharge Details Clinical Impression: Hallucinations Primary Care Provider: Sandy Milner ED Provider: Jaime Alves [place] Meds and New Rx's Prescriptions: No Action methadone 10 mg tablet 100 mg PO DAILY Patient Comments: managed by Bjorn naloxone [Narcan] 4 mg/actuation spray,non-aerosol 1 spray intranasal Q2-3M PRN (Reason: opioid overdose) Qty: 2 4RF Rx Instructions: spray 1 dose into ONE nostril; alternate nostrils w each dose until help arrives sertraline 50 mg tablet 75 mg PO DAILY Qty: 135 3RF Hold Instructions: pt stopped on own Rx Instructions: Take 1.5 tablets daily
[2023-08-17 07:28] VITALS: TEMP 36.2
--- NOTE | 2023-08-17 08:27 | CMSP_ITS ---
Date of service: 08/17/23 Time of Service: 08:30 Care Management Safety Plan Status Status: Involuntary Reason for Wait Reason for Wait: Inpatient Admission Safety Plan Safety Plan: INVOLUNTARY FOR INPATIENT PSYCHIATRIC STABILIZATION.? Patient is appropriate in all interactions since arriving at [facility]; Pt has demonstrated appropriate coping and communication skills, has articulated his or her needs and concerns and is fully engaged during staff interactions. Safety plan has been established with patient, and care team, to adhere to patient goals, identify restrictions based on behavioral status, address nutrition, and determine allowed personal belongings, tools for hygiene and personal care. Determine level of activity including ambulation, level of supervision, visitors, and determine privileges based on behaviors and level of engagement by pt. SAFETY PLAN: 1. Will remain on suicide precautions, in paper clothes 2. Will remain in Zone B under direct supervision of one-on-one staff at all times provided by [employer]; MECHE, FRAME CHANGER family life educator. 3. May have paper cups, plates, finger foods as well as a cardboard spoon with which to eat meals. 4. Follow [facility] Management of the Admitted Behavioral Health Patient policy. 5. Shower available in Zone B without restriction. 6. Personal belongings-soft items permitted at RN discretion- has own soft blanket. 7. Visitors-mom may visit, at RN discretion. 8. Activities: soft cart items approved per RN discretion. 9.? Bathroom available in Zone B without restriction. 10. Phone: limited to [facility] cordless phone at RN discretion. Due to INVOLUNTARY status, patient is being held at [facility] by the Department of Mental Health ([facility]) until 2nd certification by [facility] Psychiatrist can be performed (within 24 hours). Staff will provide de-escalation support (CPI) as needed. If patient wishes to leave [facility], staff will contact [facility] Crisis Screener ([phone]) and Dynamics Ax Developer ([phone]) as soon as possible. In the event of elopement, notify [place] [employer] ([phone]).Patient is currently involuntarily at [facility]. [facility] Frontline Data Security Administrator will continue seeking placement. Please contact the Dynamics Ax Developer for any needed changes to Safety Plan. Safety plan has been provided to interdepartmental care team. Patient will be transported by [employer] at time of discharge.
--- NOTE | 2023-08-17 08:27 | PDOC.CMSAFE ---
Date of service: 08/17/23 Time of Service: 08:30 Care Management Safety Plan Status Status: Involuntary Reason for Wait Reason for Wait: Inpatient Admission Safety Plan Safety Plan: INVOLUNTARY FOR INPATIENT PSYCHIATRIC STABILIZATION.? Patient is appropriate in all interactions since arriving at [facility]; Pt has demonstrated appropriate coping and communication skills, has articulated his or her needs and concerns and is fully engaged during staff interactions. Safety plan has been established with patient, and care team, to adhere to patient goals, identify restrictions based on behavioral status, address nutrition, and determine allowed personal belongings, tools for hygiene and personal care. Determine level of activity including ambulation, level of supervision, visitors, and determine privileges based on behaviors and level of engagement by pt. SAFETY PLAN: 1. Will remain on suicide precautions, in paper clothes 2. Will remain in Zone B under direct supervision of one-on-one staff at all times provided by [employer]; MECHE, DRIVER'S LICENSE REVIEWING OFFICER potato chip sacking machine operator. 3. May have paper cups, plates, finger foods as well as a cardboard spoon with which to eat meals. 4. Follow [facility] Management of the Admitted Behavioral Health Patient policy. 5. Shower available in Zone B without restriction. 6. Personal belongings-soft items permitted at RN discretion- has own soft blanket. 7. Visitors-mom may visit, at RN discretion. 8. Activities: soft cart items approved per RN discretion. 9.? Bathroom available in Zone B without restriction. 10. Phone: limited to [facility] cordless phone at RN discretion. Due to INVOLUNTARY status, patient is being held at [facility] by the Department of Mental Health ([facility]) until 2nd certification by [facility] Psychiatrist can be performed (within 24 hours). Staff will provide de-escalation support (CPI) as needed. If patient wishes to leave [facility], staff will contact [facility] Crisis Screener ([phone]) and Athletic Shoe Designer ([phone]) as soon as possible. In the event of elopement, notify [place] [employer] ([phone]).Patient is currently involuntarily at [facility]. [facility] Frontline Saw Feeder will continue seeking placement. Please contact the Athletic Shoe Designer for any needed changes to Safety Plan. Safety plan has been provided to interdepartmental care team. Patient will be transported by [employer] at time of discharge.
[2023-08-17] MEDS: LORazepam 1 MG TAB 2 MG PO (09:05)
[2023-08-17] MEDS: Methadone Liquid 10 MG/ML 100 MG PO (09:40)
--- NOTE | 2023-08-17 11:07 | CMPROGNOTE_ITS ---
Date of service: 08/17/23 Time of Service: 11:07 Care Management Progress Note Progress Note Text Progress Note Text: CM met with staff to discuss the plan of care for Natalie. Huddle was completed with ALICIA Barrios Airborne Mission Systems Superintendent, ALICIA Banda, Rebecca and MECHE Carlson/CPS[employer], Henrietta CM, and Nora [facility]. Per staff report, Natalie required support from her mother in the bathroom; Natalie has been minimally engaged with staff. This morning, she spit out her medication on her RN; security was called for support. Per staff, Natalie stated you should just shoot me. Her mother has been visiting, and is reportedly her primary caregiver at home, and is supportive. Nora [facility], reported that Natalie is well known to [facility] services. Natlaie has experienced trauma in her past, including the of her brother by suicide in 2013. Nora stated that she has a diagnosis of Bipolar disorder and major depressive disorder, and has had similar presentations in the past. Nora stated that Natalie presented as catatonic yesterday, and her second certification was upheld due to her inability to engage with psychiatry. Per report, Natalie has been accepted at [facility], pending MD to and RN to RN. [facility] will coordinate transport when both have been completed. CM will continue to follow.
--- NOTE | 2023-08-17 12:26 | MHPN_ITS ---
Date of service: 08/17/23 Time of Service: 12:26 [facility] Emergency Note Release [facility] release signed:: Yes Reason for Visit The client presented to the ED on 08.16.23 for evaluation via her mother. A screening was attempted on 08.15 however, due to her being mute she could not give verbal permission to accept treatment. This clinician moved forward with an EE as her symptoms have only become worse since her first assessment on 08.12. The client is reestablishing services with [facility] as of this week. She has been hospitalized prior per the mother's report at [facility]. The client has been seen daily since 08.13.23. In the last 2 weeks has the pt presented for ES prior to today?: Yes, presented at [facility] ED Client Information Client is: New Well Housed: Yes Non Suicidal Self Injury Current: No History: No Safety Risk/Harm to Self or Others Current Ideation to Harm Self or Others: No Risk: Does risk to harm exist?: yes. Access to means: No. Risk: High Risk Duty to warn indicated: No Asssessment/Mental Status Appearance: Well groomed Attitude: Other (agitated) Behavior: Agitated Speech: Loud Affect: Labile and Cogruent with mood Mood: Elevated, Stressed, Depressed, Anxious and Irritable Thought process: Unremarkable, Circumstational, Tangential and Poverty of content Hallucinations: No evidence Delusions: yes, Persectory/Paranoid Attention: Wandering Perception: Derealization Orientation: Disoriented in Time, Place, Person and Situation Memory: Impaired in: Recent and Remote Insight: Poor Judgement: Poor Neurovegetative Symptoms Sleep: Decrease Appetitie: Decrease Interests: Decrease Energy: Decrease Libido: Not applicable Substance Use: Drug Issues: Dependence (recent relapse) Do you use nicotine?: Yes Have you used substances in the last 7 days?: yes, opiates Additional Issues: Assaultive/Threatening Behavior: No Medical Concerns: Yes Client engaged in active self harm w/weapon: No Threatening to run away: No Child reported abuse/neglect: No Voluntarily presenting for services: No Domestic violence is a concern: No Extreme Psychosis or extreme behavior is present: Yes Impression The client is a 32 year old, single, female who is diagnosed with Major Depressive Disorder, recurrent, severe with psychotic features. She is currently living with her mother in [facility]. The client is unemployed. All underrepresented categories were honored during this assessment. The client's previous attempts are unknown due t the client not being able to communicate effectively and her delusional state. She also was unable to complete any screening tools for the same reason. The client presented sitting on her bed, freshly showered and in clean scrubs. She is tearful throughout the assessment and although is speaking she asked if this clinician wanted her to speak in Bolivian or Devil language. I got stripped of my rights because I don't know how to talk. The mother explained that she has been getting confused about her age thinking she is 18 years old instead of 32. She also asked about having a cigarette and then questioned are cigarettes illegal now? She shows paranoia making statements that she has been kicked out of her family that her brother is still alive and then he is . I don't know when I am in my own reality. I feel like I am stuck in a little box. The client had improved eye contact. Resources Reosurces reviewed and given:: [facility] Plan/Disposition Recommended Disposition: Hospitalization facilities contacted. Plan: The client was accepted by [facility] and will transported later today. Person reported agreement to plan: No Reports/communication Outcome discussed with: ED/Personnel
[2023-08-17] MEDS: LORazepam 1 MG TAB PO (14:21)
[2023-08-17] MEDS: Nicotine 4 MG GUM CH ×2 (14:22→15:54)
--- NOTE | 2023-08-17 15:22 | ED.PROG_ITS ---
Date of service: 08/17/23 Time of Service: 15:22 Medical Decision Making Patient pending transfer to [facility] on EE status, currently calm and cooperative without acute complaints. Quality:SDOH Health Related Social Needs: No Data to Display Sign Out Sign Out Data: Sign Out Comment: Pending Mental health evaluation and placement. Here with behavioral changes, not eating, sleeping. History of mood disorder. Seen here recently for hallucinations. Given 0.5mg Lorazepam here and is taken small bites of food. Nora called earlier about patient. Last updated by Flaca Knight NP at 08/16/23 16:00 Sign Out Comment: Urinalysis reviewed and concerning for UTI. Patient not forthcoming. Will initiate treatment with Keflex twice daily. Also note from mother that there may be foreign body, potentially tissue paper, in vagina. Plan to perform exam when patient will allow or at next urination. Methadone dosing will need to be determined tomorrow morning. Second certification has been performed. Last updated by Zenon Zamora MD at 08/17/23 00:19 Sign Out Comment: EE and 2nd cert done. Treating for UTI. Concern from mother for foreign body, potentially tissue paper, in the vagina. Needs external possibly internal pelvic exam when pt will allow. Methadone needs to be confirmed in the am Last updated by Maria Elena Delgado MD at 08/17/23 06:07 Sign Out Comment: Patient on EE received treatment for UTI excepted to the [facility]. Transfer paperwork signed. Patient refused home methadone dose. Last updated by Jaime Alves MD at 08/17/23 14:56 Discharge Plan Disposition Patient Disposition: Psychiatric Hospital/Unit Specific Psychiatric Facility: [facility] Discharge Details Clinical Impression: Hallucinations Primary Care Provider: Sandy Milner ED Provider: Miguel Angel Meza Home Meds and New Rx's Prescriptions: No Action methadone 10 mg tablet 100 mg PO DAILY Patient Comments: managed by Bjorn naloxone [Narcan] 4 mg/actuation spray,non-aerosol 1 spray intranasal Q2-3M PRN (Reason: opioid overdose) Qty: 2 4RF Rx Instructions: spray 1 dose into ONE nostril; alternate nostrils w each dose until help arrives sertraline 50 mg tablet 75 mg PO DAILY Qty: 135 3RF Hold Instructions: pt stopped on own Rx Instructions: Take 1.5 tablets daily
== END 2023-08-17 19:26 ==
PROVIDERS: Registered Nurse Emergency; Emergency Provider Emergency Medicine; PCP Nurse Practitioner Family
DX: R44.0 Auditory hallucinations (principal); R44.1 Visual hallucinations; N39.0 Urinary tract infection, site not specified
CPT/HCPCS: 00123; 36415; 80053; 80307; 81025; 87077; 99285; 80320; 80329; 81003; 81015; 84439; 84443; 85025; 87086; 87186

== ENCOUNTER 2023-12-01 10:38 | Outpatient (REF) | payer MEDICAID, SELFPAY ==
--- NOTE | 2023-12-01 10:15 | PAPFT_PTH ---
PATIENT: Natalie Jacobo LOC: [facility] U#:[id number] AGE/SX: 32/F ROOM: RE12/01/[address]: ZHOU Zavala : 1990 BED: DIS: 12/01/2023 SPEC #: [id number] RECD: 12/04/23 13:06 STATUS: MIGUEL GRANT #: [id number] OSCAR: 12/01/23 10:[address]: Sandy Milner DEPT: COUNTS INCLUDE 234 BEDS AT THE [facility] Cytology RECD BY: Maggie Montes Tissues: 1 - CX/ENDOCX FOR PAP SMEARS Procedures: PAP THIN PREP/UVM Screening HPV DNA PROBE Comments: [id number] (HPV 16 & 18/45)
== END 2023-12-01 10:39 | disposition home or self-care (01) ==
LOC: LBN 10:38
PROVIDERS: PCP Nurse Practitioner Family; Visit Provider Nurse Practitioner Family
DX: Z12.4 Encounter for screening for malignant neoplasm of cervix (principal)
CPT/HCPCS: 88142; 87624

== ENCOUNTER 2024-01-26 08:06 | Emergency (ER) | payer MEDICAID, SELFPAY ==
[2024-01-26 08:38] VITALS: BP 146/100; PULSE 81; RESP 18; TEMP 36.6; O2SAT 98
--- NOTE | 2024-01-26 09:00 | DI.CT_ITS ---
Exam(s) CT RENAL COLIC WO EXAM: CT RENAL COLIC WO CLINICAL HISTORY: right flank pain severe. TECHNIQUE: Imaging Protocol: Axial computed tomography images with coronal and sagittal reformatted images were created and reviewed. COMPARISON: No exams were available for comparison FINDINGS: ABDOMEN: Lung Bases: There is a small hiatal hernia. Liver: Normal density. No measurable mass. Gallbladder and biliary tract: Cholelithiasis. The common duct appears within normal limits. No per icholecystic fluid is seen. Pancreas: Normal density, no abnormal calcifications or inflammatory process. Spleen: Normal. Kidneys: Normal size, contour and axis.No radiodense stones or obstructive uropathy. No masses seen. Adrenal glands: No mass is seen. Lymph nodes: Within normal limits. Abdominal Aorta: Abdominal portion non-dilated. PELVIS: Bladder:Symmetric distention, no gross wall thickening. Bowel: There is no bowel wall thickening or evidence of bowel obstruction. There is a moderate amoun t of stool in the colon particularly in the ascending colon and cecum. There is no evidence of an ap pendicitis. Peritoneal cavity: No ascites, collection or mesenteric inflammatory response. No free air. Reproductive organs: Unremarkable as visualized. Bones: Within normal limits. There is fusion of the T12 and L1 vertebral bodies. Soft Tissues: Within normal limits. IMPRESSION: 1. No evidence of nephrolithiasis or obstructive uropathy. 2. Cholelithiasis. If there is concern for acute cholecystitis, gallbladder ultrasound may be obtain ed for further evaluation. 3. Moderate amount of stool in the colon, particularly in the ascending colon and cecum. RADIATION DOSE DELIVERED: 579.75mGy.cm Total DLP DATA REPOSITORY: All CT scans at this facility are submitted to the National Radiology Data Registry (NRDR) Dose Index Registry (DIR) with the [employer] ([employer]). RADIATION OPTIMIZATION: All CT scans at this facility use at least one of these dose optimization te chniques: automated exposure control; mA and/or kV adjustment per patient size (includes targeted exa ms where dose is matched to clinical indication); or iterative reconstruction.
--- NOTE | 2024-01-26 09:13 | ED.GENADUL_ITS ---
Discharge Plan Disposition Patient Disposition: Home Condition: Stable Discharge Details Clinical Impression: Acute right flank pain, Gallstone Primary Care Provider: Sandy Milner ED Provider: Zenon Zamora Home Meds and New Rx's Prescriptions: Continued methadone 10 mg tablet See Rx Instructions PO DAILY Patient Comments: managed by Bjorn Rx Instructions: 80 mg orally daily; naloxone [Narcan] 4 mg/actuation spray,non-aerosol 1 spray intranasal Q2-3M PRN (Reason: opioid overdose) Qty: 2 4RF Rx Instructions: spray 1 dose into ONE nostril; alternate nostrils w each dose until help arrives Discharge Instructions Instructions: Low Back Pain ED, Gallstones ED Additional Instructions: Please contact your primary care physician to arrange follow-up. Please be sure to discuss the results of your CT scan. Additional outpatient diagnostic testing may be necessary. Return to the ER immediately for any worsening or new concerning symptoms. Referrals: Sandy Milner, OFFICE [employer]ANER [Primary Care Provider] - Discharge Data Discharge Date/Time-TO BE ENTERED AT DEPARTURE: 01/26/24 13:05 HPI General Mode of arrival: ambulatory . Date/Time Provider Initiated Documentation: 01/26/24 08:45 . Limitations to Documentation: no limitations . Information obtained by: patient . HPI Narrative: 33-year-old female presents with a chief complaint of flank pain. Patient notes 3 days of persistent right flank pain that is now severe. She describes it as sharp. She noticed associated dark urine today. She states sitting and laying worsens the pain. Pain improves while standing. No associated fever. No naus ea or vomiting. She has been using ibuprofen without much relief. Related Data Home Medications ?Medication ?Instructions ?Recorded ?Confirmed naloxone 4 mg/actuation nasal 1 spray intranasal Q2-3M PRN 05/05/22 02/02/24 spray (Narcan) opioid overdose #2 ea methadone 10 mg tablet See Rx Instructions PO DAILY 09/08/23 02/02/24 Previous Rx's ?Medication ?Instructions ?Recorded naloxone 4 mg/actuation nasal 1 spray intranasal Q2-3M PRN 05/05/22 spray (Narcan) opioid overdose #2 ea Allergies Allergy/AdvReac Type Severity Reaction Status Date / Time house dust Allergy Unknown Other (See Unverified 02/02/24 09:02 Comment) dust mite Allergy Unknown Other (See Uncoded 02/02/24 09:02 Comment) General Stated Complaint: FlankPain NEHAL: 3 Review of Systems All systems reviewed & are unremarkable except as noted in HPI and below Constitutional Constitutional: Denies fever(s) Exam Const General: cooperative and no acute distress HENMT Mouth: moist mucous membranes Eyes Conjunctivae: normal conjunctivae Sclera: normal sclerae Resp Auscultation: clear to auscultation bilaterally, no rales, no rhonchi and no wheezes Cardio Rate: regular rate and not tachycardic Rhythm: regular rhythm GI Palpation: soft, not firm, no guarding, no masses, not rigid and nontender Back/Spine/Pelvis Back: CVA tenderness (rt), No mass, No erythema, No warmth and No ecchymosis Thoracic/Lumbar Spine: No thoracic spinal tenderness and No lumbar spinal tenderness Skin General skin exam: no rashes or lesions noted Neuro General: patient alert, patient awake and tone normal Extrem General: no edema Psych Appearance: grossly normal Mental Status: mental status grossly normal Speech and Movement: speech and movement normal Course Vital Signs Vital signs: Vital Signs Temperature 36.6 C 01/26/24 08:38 Pulse 81 01/26/24 08:38 Respiratory Rate 18 01/26/24 08:38 Blood Pressure 146/100 H 01/26/24 08:38 Pulse Oximetry 98 01/26/24 08:38 Temperature 36.6 C 01/26/24 08:38 Temperature Source Oral 01/26/24 08:38 Pulse 81 01/26/24 08:38 Respiratory Rate 18 01/26/24 08:38 Respiratory Effort Normal, Non-Labored 01/26/24 09:11 Blood Pressure 146/100 H 01/26/24 08:38 Blood Pressure Position Sitting 01/26/24 08:38 Pulse Oximetry 98 01/26/24 08:38 Oxygen Delivery Method Room Air 01/26/24 08:38 Oxygen Flow Rate 0 01/26/24 08:38 Pain Level 8 01/26/24 08:38 Lab/Test Results Lab/Test Results: POC- Test(urine) Negative Medical Decision Making 915??33-year-old female here with 3 days of persistent, sharp, right flank pain. Patient is currently menstruating. Patient is hemodynamically stable and afebrile. Plan to obtain CT of the abdomen pelvis to assess for acute surgical pathology including obstructed stone. Patient has been using ibuprofen and received her methadone dose today. I will give acetaminophen for additional analgesia. 1220 --CT of the abdomen pelvis was interpreted by radiology: 1. No evidence of nephrolithiasis or obstructive uropathy. 2. Cholelithiasis. If there is concern for acute cholecystitis, gallbladder ultrasound may be obtained for further evaluation. 3. Moderate amount of stool in the colon, particularly in the ascending colon and cecum. Patient reassessed and pain improved. Abdomen reexamined and has no right upper quadrant tenderness or abdominal tenderness at all. Abdominal exam remains benign. Suspect musculoskeletal etiology. Plan for discharge with outpatient follow-up. All results were discussed with the patient. She was encouraged to follow-up with her PCP regarding gallstone. Disposition decision was made weighing the risks and benefits of hospitalization versus outpatient treatment, the risk for further decompensation, and the patient's wishes. The patient was stable and requested discharge. She specifically notes she is hungry and wishes to eat at this time. Prior to discharge, my usual and customary return precautions were reviewed with the patient - this included follow-up instructions and reason to return to the emergency department if condition worsens, does not improve as expected, or other new concerns arise. Lab Data Lab results reviewed: Yes I reviewed the patient's lab results. Labs: Laboratory Tests Range/Units 01/26/24 01/26/24 09:00 10:05 WBC (4.4-10.8) 10^3/uL 5.96 RBC (3.93-5.22) 10^6/uL 3.98 Hgb (11.2-15.7) g/dL 11.9 Hct (36.0-46.0) % 35.8 L MCV (80-95) fL 90 MCH (27.0-33.0) pg 29.9 MCHC (32.0-36.0) % 33.2 RDW (11.7-14.6) % 13.0 Plt Count (130-400) 10^3/uL 185 MPV (8.0-11.0) fL 10.0 Immature Gran % % 0.3 Neutrophils % % 61.7 Lymphocytes % % 29.0 Monocytes % % 8.1 Eosinophils % % 0.7 Basophils % % 0.2 Nucleated RBC % (0.0-0.3) % 0.0 Absolute Neutrophils (1.2-6.7) 10^3/uL 3.68 Absolute Lymphocytes (1.2-3.4) 10^3/uL 1.73 Absolute Monocytes (0.1-0.8) 10^3/uL 0.48 Absolute Eosinophils (0.0-0.7) 10^3/uL 0.04 Absolute Basophils (0.0-0.2) 10^3/uL 0.01 Sodium (136-145) mmol/L 139 Potassium (3.5-5.1) mmol/L 3.5 Chloride (98-107) mmol/L 103 Carbon Dioxide (21.0-32.0) mmol/L 26.6 Anion Gap (3-11) mmol/L 9.4 BUN (7-18) mg/dL 13 Creatinine (0.55-1.02) mg/dL 1.0 Est GFR (CKD-EPI 2020) (mL/min/1.73m2) 77.24 Glucose (74-106) mg/dL 86 Calcium (8.5-10.1) mg/dL 8.9 Total Bilirubin (0.2-1.0) mg/dL 0.45 AST (15-37) U/L 26 ALT (14-59) U/L 36 Alkaline Phosphatase (46-116) U/L 56 Total Protein (6.4-8.2) g/dL 7.2 Albumin (3.4-5.0) g/dL 3.4 Urine Color (Yellow) Yellow Urine Clarity (Clear) Clear Urine pH (5-8) 6.0 Ur Specific [place] (1.005-1.025) >= 1.030 H Urine Protein (Neg-Trace) mg/dL 30 H Urine Ketones (Negative) mg/dL 40 H Urine Blood (Negative) Trace-lysed H Urine Nitrite (Negative) Negative Urine Bilirubin (Negative) Small H Urine Urobilinogen (Up to 0.2) mg/dL 0.2 Ur Leukocyte Esterase (Negative) Negative Urine RBC (0-2) HPF 3-5 H Urine WBC (0-5) HPF 0-2 Ur Epithelial Cells (Negative) HPF Many Urine Crystals (Negative) HPF Negative Urine Bacteria (Negative) HPF Few Urine Mucus (Negative) Trace Ur Culture Indicated? No Urine Glucose (Negative) mg/dL Negative Quality:SDOH Health Related Social Needs: Health related social needs food insecurity Health related social needs details referred to Marya [facility] All Active Problems (Updated 02/02/24 @ 09:33 by Sandy Milner NP) Cholelithiasis (Acute) Amenorrhea (Acute) Major depressive disorder, recurrent, severe with psychotic features (Chronic) Opioid use disorder, severe, in early remission, dependence (Chronic) Generalized anxiety disorder (Chronic) Genital herpes (Chronic) Electronic cigarette use (Chronic) Cervical high risk HPV (human papillomavirus) test positive (Chronic) Medical History Cigarette smoker Surgical History S/P dilation and curettage (12/02/15) For molar S/P section (02/10/15) Family History Mother Alcohol abuse Bipolar disorder Asthma Father , at 37 from car accident No problems noted. Brother , at 22 from suicide Alcohol abuse Daughter No problems noted. Maternal Grandfather Alcohol abuse Cancer Unknown type Maternal Grandmother Heart disease Myocardial infarction Paternal Grandfather No problems noted. Paternal Grandmother No problems noted. Social History Smoking/Tobacco Use Status: Former Tobacco Use tobacco type: cigarettes and e- cigarettes Quit Date: 05/22/23 Tobacco: How many years used: 13 Quit status: quit date established Second Hand Exposure: Yes Counseling given: provider counseling Smoking risk assessment performed?: Yes Alcohol Intake: current Alcohol Intake frequency: holidays/special occasions only Alcohol type: beer Drug use: Current Sobriety Substance use type: does not use, former substance user, marijuana, crack/cocaine, heroin and IV drugs Details: Methadone, 80mg/day Caregiver/Support person: No Household members: none Housing: homeless Communication Needs: None Do you need help understanding health information?: Rarely Pets and animals: Yes Pets and animals: dog(s) Sexually active: Yes Do you think of yourself as: straight/heterosexual Current gender identity: female What is your relationship status?: never How often do you talk on the phone with friends or family?: three or more times per week How often do you get together with friends or relatives?: three or more times per week How often do you attend oriental orthodox or scientologist services?: decline to answer Do you belong to any clubs or organized social groups?: decline to answer Panel score (0-1 are the most socially isolated patients): 1 What type of physical activity do you participate in: walking Duration: > 90 minutes/day Frequency: daily Lulú/Worship: No preference Special lulú needs: No Seatbelt use: sometimes Helmet use: No Drive intox or ride w/intox boom truck driver: No Do you feel safe at home: Yes Do you feel safe in your relationship?: Yes History History 3 Para 1 Hx # Term Pregnancies Multiple births Hx # Pregnancies Ectopic pregnancies AB induced Hx Number of Living Children 1 AB spontaneous 2 PAWSS Have you Been Recently Intoxicated or Drunk Within the Last 30 days?: No Have you Ever Experienced Previous Episodes of Alcohol Withdrawal?: No Have you ever Experienced Withdrawal Seizures?: No Have you ever Experienced Delirium Tremens(DT)s?: No Have you ever undergone Alcohol Rehabilitation Treatment (i.e, inpt ot outpatient treatment programs)?: No Have you ever Experienced Blackouts?: No Have you ever Combined Alcohol with other Downers within the last 90 days?: No Have you ever Combined Alcohol with any other Substance of Abuse during the last 90 days?: No Positive Blood Alcohol level on Presentation? [PCS.BAL]: No Evidence of Increased Autonomic Activity (i.e. HR>120, tremor, sweating, agitation, nausea)?: No Result: 0
[2024-01-26 09:17] LABS: Bilirubin Small (Negative); Blood Trace-lysed (Negative); Clarity Clear (Clear); Glucose Negative (Negative); Ketones 40 mg/dL (Negative); Leukocyte Esterase Negative (Negative); Nitrite Negative (Negative); Specific Gravity >= 1.030 (1.005-1.025); Urobilinogen 0.2 mg/dL (Up to 0.2)
[2024-01-26] MEDS: Acetaminophen 325 MG TAB 650 MG PO (09:23)
[2024-01-26 09:24] VITALS: BP 132/85; PULSE 59; RESP 18; TEMP 36.6; O2SAT 98
[2024-01-26 09:29] LABS: Bacteria Few HPF (Negative); Epithelial Cells Many HPF (Negative); WBC 0-2 HPF (0-5)
[2024-01-26 09:30] LABS: C & S Indicated? No; Crystals Negative HPF (Negative); Mucus Trace (Negative)
[2024-01-26 10:10] LABS: Abs Immature Grans 0.02 10^3/uL (0.0-0.06); Absolute Basophil Count 0.01 10^3/uL (0.0-0.2); Absolute Eosinophil Count 0.04 10^3/uL (0.0-0.7); Absolute Lymphocyte Count 1.73 10^3/uL (1.2-3.4); Absolute Monocyte Count 0.48 10^3/uL (0.1-0.8); Absolute Neutrophil Count 3.68 10^3/uL (1.2-6.7); Basophils % 0.2 %; Eosinophils % 0.7 %; HCT 35.8 % (36.0-46.0); HGB 11.9 g/dL (11.2-15.7); Immature Grans % 0.3 %; MCH 29.9 pg (27.0-33.0); MCHC 33.2 % (32.0-36.0); MCV 90 fL (80-95); Monocytes % 8.1 %; Neutrophils % 61.7 %; Platelet Count 185 10^3/uL (130-400); RBC 3.98 10^6/uL (3.93-5.22); WBC 5.96 10^3/uL (4.4-10.8)
[2024-01-26 10:33] LABS: ALT 36 U/L (14-59); AST 26 U/L (15-37); Albumin 3.4 g/dL (3.4-5.0); Alkaline Phosphatase 56 U/L (46-116); Anion Gap 9.4 mmol/L (3-11); BUN 13 mg/dL (7-18); Bilirubin, Total 0.45 mg/dL (0.2-1.0); CO2 26.6 mmol/L (21.0-32.0); Calcium 8.9 mg/dL (8.5-10.1); Chloride 103 mmol/L (98-107); Estimated GFR 77.24 (mL/min/1.73m2); Glucose 86 mg/dL (74-106); Potassium 3.5 mmol/L (3.5-5.1); Sodium 139 mmol/L (136-145); Total Protein 7.2 g/dL (6.4-8.2)
== END 2024-01-26 13:05 | disposition home or self-care (01) ==
PROVIDERS: Emergency Provider Student in an Organized Health Care Education/Training Program; PCP Nurse Practitioner Family
DX: R10.9 Unspecified abdominal pain (principal); K80.20 Calculus of gallbladder without cholecystitis without obstruction; Z87.891 Personal history of nicotine dependence
CPT/HCPCS: 80053; 81025; 99284; 74176; 81003; 81015; 85025; 99283

== ENCOUNTER 2024-02-03 21:29 | Emergency (ER) | payer MEDICAID, SELFPAY | END 2024-02-03 21:46 | disposition left against medical advice (07) | LOC: ER 21:39 | PROVIDERS: PCP Nurse Practitioner Family | DX: Z53.21 Procedure and treatment not carried out due to patient leaving prior to being seen by health care provider (principal) ==